=== PATIENT | female | born 1940 | race Caucasian/White ===

== ENCOUNTER 2016-04-25 16:48 | Outpatient (CLI) | payer OTHER ==
[2012-09-03 12:35] VITALS: TEMP 97
[2015-10-24 12:11] VITALS: BMI 25.4
--- NOTE | 2016-04-25 17:22 | CT ---
EXAM: CT of the chest without contrast. HISTORY: Shortness of breath. PROCEDURE: Contiguous axial CT images of the chest without contrast with coronal and sagittal refor mats. FINDINGS: The heart is within normal limits in size. The thoracic aorta is within normal limits in diameter. There are atherosclerotic calcifications in the thoracic aorta. There are coronary teddy ry calcifications. The mediastinum is normal in appearance. There is biapical scarring. There are mild emphysematous changes throughout both lungs. There is minimal atelectasis and/or pneumonia in the superior segment of the left lower lobe. There is minimal lingular atelectasis and/or pneumoni a. There are degenerative changes in the spine. Impression: Minimal lingular and left lower lobe atelectasis and/or pneumonia. Chronic obstructive pulmonary disease. Atherosclerotic vascular disease.
[2016-04-25 17:31] LABS: ALBUMIN 3.6 g/dL (3.4-5.0); ALBUMIN/GLOBULIN RATIO 1.13; ANION GAP 11.2; BILIRUBIN,TOTAL 0.29 mg/dL (0.00-1.20); BUN/CREATININE RATIO 19.23; CALCIUM 10.1 mg/dL (8.2-10.2); CREATININE 0.78 mg/dL (0.60-1.30); POTASSIUM 4.2 mmol/L (3.5-5.10); TOTAL PROTEIN 6.8 g/dL (5.8-8.1)
[2016-04-26 17:42] LABS: BASOPHILS % (AUTO) 0.7 % (0.0-3.0); EOSINOPHILS # (AUTO) 0.1 K/ul (0.0-0.7); HEMATOCRIT 40.8 % (37.0-47.0); IMMATURE GRANULOCYTE % (AUTO) 0.2 % (0.0-5.0); LYMPHOCYTES # (AUTO) 2.2 K/uL (0.60-3.4); LYMPHOCYTES % (AUTO) 36.5 (10.0-50.0); MEAN CORPUSCULAR HEMOGLOBIN 29.5 pg (27.0-31.0); MEAN CORPUSCULAR HGB CONC 31.9 (31.8-35.4); MEAN CORPUSCULAR VOLUME 92.7 fl (81.0-99.0); MONOCYTES # (AUTO) 0.4 K/uL (0.4-2.0); NEUTROPHILS # (AUTO) 3.2 K/ul (2.0-6.9); NEUTROPHILS % (AUTO) 53.6; PLATELET COUNT 148 10^3/uL (140-440); WHITE BLOOD COUNT 6.02 K/ul (4.6-10.2)
== END 2016-04-25 16:49 | disposition home or self-care (01) ==
LOC: RAD 16:48
PROVIDERS: ATTEND General Practice
DX: R06.02 Shortness of breath (principal); R05 Cough; Z87.891 Personal history of nicotine dependence
CPT/HCPCS: 36415; 80053; 85025

== ENCOUNTER 2016-05-23 11:00 | Outpatient (RCR) ==
[2012-09-03 12:35] VITALS: TEMP 97
[2015-10-24 12:11] VITALS: BMI 25.4
== END 2016-05-27 ==
LOC: NEWBEG 11:00
PROVIDERS: ATTEND Psychiatry & Neurology Psychiatry
DX: F33.2 Major depressive disorder, recurrent severe without psychotic features (principal); F41.9 Anxiety disorder, unspecified
CPT/HCPCS: 90792; 90837; 99214

== ENCOUNTER 2016-05-27 16:45 | Inpatient (IN) ==
[2016-05-27 17:15] VITALS: BMI 24.5
[2016-05-27 19:47] LABS: BILIRUBIN,URINE Negative (NEGATIVE); KETONES,URINE Negative (NEGATIVE); LEUKOCYTE ESTERASE ,URINE Negative (NEGATIVE); NITRITE,URINE Negative (NEGATIVE); PH,URINE 6.5 (5-9); PROTEIN,URINE Negative (NEGATIVE); URINE, BLOOD Negative (NEGATIVE)
[2016-05-27 19:49] LABS: ADD URINE MICROSCOPIC NO
--- NOTE | 2016-05-27 21:53 | CT ---
EXAM: CT of the chest without contrast. HISTORY: Cough. Fever. Shortness of breath. COMPARISON: 04/25/2016. TECHNIQUE: Contiguous axial images were obtained from the lung apices to the upper abdomen. The st udy was performed without IV contrast. FINDINGS: The lung windows show no lobar consolidation or effusion. Scattered air space opacities s een in the left lower lobe and lingula. There is no definite lobar consolidation. There are mild emphysematous changes which are increased in comparison to the prior study. There are multiple small nodular densities with central low density/cavitation. These measure 5-7 mm in size. These is see n in the supra segment of the left lower lobe as well as in the right lower lobe. There was a paten t. The heart size normal limits. Coronary calcifications are seen. There is a precarinal lymph no de with a short axis measuring 8 mm. Limited views of the upper abdomen. The visualized portion of the liver, spleen, pancreas adrenal g lands are normal. IMPRESSION: 1. No lobar consolidation or effusion. 2. Scattered air space opacities in left lower lobe and the which may be due to atelectasis. Early pneumonia cannot be excluded. 3. Scattered round nodular densities with central low density suggestive of cavitation. Findings m ay related to an infectious process. Recommend short-term follow-up.
--- NOTE | 2016-05-27 22:02 | ED.PDOC ---
Procedures - IV/Art Line Insertion Location: RT hand Type of Line: Peripheral IV Invasive Line/IV Catheter Gauge: 22 Number of Attempts: 1 Blood Return Positive: Yes Invasive Line/IV Flushes Without Difficulty: Yes Conscious Sedation - Pre-op Assessment Weight: 151 lb 11.2 oz Surgical History: hysterectomy, gallbladder D&C - Medical History Past Medical History: Hypertension, COPD, Anxiety, CAD
[2016-05-27 22:12] LABS: BASOPHILS % (AUTO) 0.5 % (0.0-3.0); EOSINOPHILS # (AUTO) 0.1 K/ul (0.0-0.7); EOSINOPHILS % (AUTO) 1.2 % (0.0-7.0); HEMATOCRIT 39.4 % (37.0-47.0); HEMOGLOBIN 12.9 g/dl (12.0-16.0); IMMATURE GRANULOCYTE % (AUTO) 0.4 % (0.0-5.0); LYMPHOCYTES # (AUTO) 2.1 K/uL (0.60-3.4); LYMPHOCYTES % (AUTO) 26.7 (10.0-50.0); MEAN CORPUSCULAR HEMOGLOBIN 29.5 pg (27.0-31.0); MEAN CORPUSCULAR HGB CONC 32.7 (31.8-35.4); MONOCYTES # (AUTO) 0.4 K/uL (0.4-2.0); MONOCYTES % (AUTO) 5.3 (0-10); NEUTROPHILS # (AUTO) 5.1 K/ul (2.0-6.9); NEUTROPHILS % (AUTO) 65.9; PLATELET COUNT 152 10^3/uL (140-440); RED BLOOD COUNT 4.38 10^6/ul (4.20-5.40); WHITE BLOOD COUNT 7.76 K/ul (4.6-10.2)
[2016-05-27 22:36] LABS: ALBUMIN 3.6 g/dL (3.4-5.0); ALBUMIN/GLOBULIN RATIO 1.06; ANION GAP 13.8; BILIRUBIN,TOTAL 0.31 mg/dL (0.00-1.20); BUN/CREATININE RATIO 14.77; CALCIUM 9.9 mg/dL (8.2-10.2); CREATININE 0.88 mg/dL (0.60-1.30); POTASSIUM 3.8 mmol/L (3.5-5.10)
[2016-05-27] MEDS ORDERED: ROCEPHIN ONE (23:45)
[2016-05-27] MEDS ORDERED: ROCEPHIN 2 GM in SODIUM CHLORIDE 100 ML IV SCH (23:45)
[2016-05-27] MEDS ORDERED: SOLU-CORTEF 250 MG ONE (23:45)
[2016-05-27] MEDS ORDERED: ZITHROMAX 500 MG in SODIUM CHLORIDE 250 ML IV SCH (23:45)
[2016-05-27] MEDS: XANAX PO SCH (23:48)
[2016-05-27] MEDS: TOPROL XL PO SCH (23:49)
[2016-05-27] MEDS: SOLU-CORTEF 250 MG IVP SCH (23:54)
[2016-05-28] MEDS: SYMBICORT 160-4.5 MCG INHALER IH SCH ×2 (08:59→21:02)
[2016-05-28] MEDS ORDERED: SOLU-CORTEF 100 MG IVP SCH (09:00)
[2016-05-28] MEDS: NON-FORMULARY MEDICATION (Bupropion Hcl [Wellbutrin Xl] 300 MG) PO SCH (09:00)
[2016-05-28] MEDS: XANAX PO SCH ×4 (09:00→21:02)
[2016-05-28] MEDS: TOPROL XL PO SCH ×2 (09:00→21:03)
[2016-05-28] MEDS: CYMBALTA PO SCH (09:00)
[2016-05-28] MEDS: SOLU-CORTEF 250 MG IVP SCH (09:01)
[2016-05-28] MEDS: NORCO 10-325 PO PRN (11:39)
[2016-05-28] MEDS ORDERED: TYLENOL PO PRN (18:27)
[2016-05-28] MEDS: ROCEPHIN 2 GM in SODIUM CHLORIDE 100 ML IV SCH (21:02)
[2016-05-28] MEDS: ZITHROMAX 500 MG in SODIUM CHLORIDE 250 ML IV SCH (22:14)
[2016-05-29] MEDS: CYMBALTA PO SCH (09:40)
[2016-05-29] MEDS: TOPROL XL PO SCH ×2 (09:41→20:28)
[2016-05-29] MEDS: XANAX PO SCH ×4 (09:41→20:28)
[2016-05-29] MEDS: NON-FORMULARY MEDICATION (Bupropion Hcl [Wellbutrin Xl] 300 MG) PO SCH (09:41)
[2016-05-29] MEDS: SYMBICORT 160-4.5 MCG INHALER IH SCH ×2 (09:42→20:28)
[2016-05-29] MEDS: NORCO 10-325 PO PRN (12:41)
[2016-05-29] MEDS: LOVENOX SUBCUT SCH (14:15)
[2016-05-29] MEDS: ROCEPHIN 2 GM in SODIUM CHLORIDE 100 ML IV SCH (20:28)
[2016-05-29] MEDS: ZITHROMAX 500 MG in SODIUM CHLORIDE 250 ML IV SCH (21:47)
[2016-05-30] MEDS: CYMBALTA PO SCH (08:25)
[2016-05-30] MEDS: SYMBICORT 160-4.5 MCG INHALER IH SCH (08:25)
[2016-05-30] MEDS: NON-FORMULARY MEDICATION (Bupropion Hcl [Wellbutrin Xl] 300 MG) PO SCH (08:26)
[2016-05-30] MEDS: TOPROL XL PO SCH (08:26)
[2016-05-30] MEDS: LOVENOX SUBCUT SCH (08:27)
[2016-05-30] MEDS: XANAX PO SCH ×2 (08:28→13:45)
[2016-05-30] MEDS ORDERED: ZITHROMAX PO STA (10:50)
[2016-05-30 11:12] VITALS: BP 125/70; TEMP 98.1
[2016-05-30] MEDS: NORCO 10-325 PO PRN (11:35)
--- NOTE | 2016-05-30 11:46 | PN ---
DATE OF VISIT: 05/28/16 SUBJECTIVE: The patient is alert and oriented. She claimed that she is not feeling well but her oxygen saturation is 98% at 2 liters. She admitted to be still smoking. I repeated to her again that any smoking minimal or so is not helpful towards improving her physical health. LUNGS:Her wheezing less but still present in both lung palomares. Air exchange is minimal. HEART: Audible with good tones. ABDOMEN: Soft and non-tender. The patient seemed to be having some tremors of the hands and I don't know if this secondary to the neurotransmitter increase in her system. This patient is taking Cymbalta 60mg daily, Wellbutrin 300mg daily and also a long active beta adrenergic medication. She is receiving Ceftriaxone 2 gram daily and Azithromycin 500mg daily. Again this patient needs to stop smoking completely. I told her that she could not smoke half a cigarette today or a cigarette today at all. Chest CT does not indicate any pneumonia. MTDD
--- NOTE | 2016-06-04 15:19 | DS ---
ADMITTED: 04/2816 DISCHARGED: 05/30/16 PATIENT IDENTIFICATION: The patient is a 76 year old female who was seen initially at the office because of increasing shortness of breath. Her oxygen saturation was 90% with 2 liters of oxygen. Her lungs had markedly diminished breath sounds and air exchange was minimal with inspiratory and expiratory wheeze. Heart was audible with good tones. HOSPITAL COURSE: This patient was admitted to the hospital because of acute exacerbation of chronic bronchitis. Labs were ordered however the formula checker and nurses were not able to access. We had to call Stephan rGeen the nurse anaesthatist to start the IV as well as the drawing of blood samples. Arterial blood gasses was ordered but could not be accessed. The patient's whole work up during this admission consisted of a CBC showing normal WBC 7,760, normal hgb and hct, normal platelet count, normal electrolytes, slightly elevated sugar 146, EGFR 63 , normal AST and ALT, Procalcitonin normal less than 0.05. Urinalysis normal. CT chest showed no consolidation or effusion. Carotid opacities left lower lobe maybe due to atelectasis or early pneumonia, scattered round nodular densities with central low densities suggesting cavitation. Findings maybe related to infectious process and the radiologist recommended a repeat short- term. This patient might need contrast medium during that time. Her EGFR is still acceptable. The patient during this hospitalization was given Ceftriaxone 2grams intervenously daily and Zithromax 1,200mg daily. Third dose of the Zithromax was not complete and only used about a 1/4 she was then given a 500mg orally. The patient was continued on her previous medications and this patient is also now on Wellbutrin prescribed by the psychiatrist from [facility]. The patient had improved while in the hospital and her vitals signs at discharge at 10:00 in the morning showed a temperature 98.1, pulse 75, blood pressure 125/70, respiratory rate 21 and oxygen saturation 98% on 2 liters. The patient's nasal cannula was left in place but the oxygen was discontinued. This patient had oxygen saturation was no oxygen nasal at 92%. The patient had been without oxygen for more than 2 hours. Her lungs has better air exchange and no wheezing. Still has some rales. The heart is audible and regular with good tones. There are more rales appreciated and this probably because of the better air exchange. The patient had sworn that she would not smoke anymore. I told her that she had done that before. She was trying to tell me that she had stopped smoking and yet she is still smoking,does not help her. She told me that she had about 5 or 6 packs of cigarettes at home left. FINAL DIAGNOSES: 1. Acute exacerbation of chronic bronchitis, improved 2. COPD, chronic 3. Chronic tobacco use and abuse persistent 4. Depression, on medication Cymbalta and Wellbutrin PLAN: 1. This patient is resume all her previous medications 2. No further antibiotic is prescribed. PROGNOSIS: Guarded. MTDD
--- NOTE | 2016-06-05 08:53 | HP ---
CHIEF COMPLAINT: Shortness of breath and fatigue. HISTORY OF PRESENT ILLNESS: 76 year old female who is known to have COPD for some time with nasal oxygen at home is seen at the office today because of increasing shortness of breath. The patient's oxygen saturation was 90 at 2 liters. She also was quite tired with cough. Air exchange was very poor and the patient has inspiratory, plus expiratory wheeze with some squeaks. Because of the increasing shortness of breath and markedly low oxygen saturation in spite of oxygen, the patient was admitted to the hospital. The patient had been in the hospital admitted because of exacerbation of chronic bronchitis. The patient continued to smoke. She had other admissions due to exacerbation with severe hypercarbia at one time. She does complain of headaches, this is a chronic problem. PAST PERSONAL HISTORY: She had cataract extraction, total abdominal hysterectomy in 1980, cholecystectomy. FAMILY HISTORY: Sister had lung carcinoma, brother had heart disease. Some members have asthma. SOCIAL HISTORY: The patient is and resides with her . She claimed to have stopped smoking. However, later on she admitted to be smoking a cigarette still. She is not telling me how many cigarettes she smokes a day. I did inform her that she is just kidding herself telling me that she had stopped smoking and yet she is still smoking. It is time for her to completely stop, not a single cigarette. MEDICATIONS: Prior to this admission. Metoprolol Succinate 25 mg twice a day Alprazolam 0.5 mg four times a day Symbicort 160/4.5 mcg one puff twice a day Hydrocodone/APAP 10/325 mg one a day as needed for headache Cymbalta 60 mg daily ALLERGIES: Codeine. REVIEW OF SYSTEMS: CONSTITUTIONAL: The patient had no fever or chills, but has fatigue secondary to the dyspnea. CLINICAL APPEALS RN: The patient has headache, chronic headaches. The intensity has not progressive and it is intermittent. Denies any ataxia or syncopal episode. VISUAL: Denies any blurred vision, double vision or transient loss of vision. AUDITORY: Hearing is somewhat diminished. She denies any pain, drainage or ringing. RESPIRATORY: The patient has cough, but not repetitive. CARDIOVASCULAR: Denies any chest pain or chest tightness or mandibular pain. GASTROINTESTINAL: The patient's appetite seemed to be adequate. No abdominal pain and no problems swallowing solids or liquids. GENITOURINARY: The patient has no pain on urination and no significant frequency. MUSCULOSKELETAL: Denies any significant joint pains. She, however, moves slowly. INTEGUMENT: Denies any rash or pruritus. ENDOCRINE: Negative. HEMATOLOGIC: Denies any prolonged bleeding episodes or easy bruising. PSYCHIATRIC: The patient's affect is down. The patient seemed to be depressed and she now goes to [facility]. PHYSICAL EXAMINATION: GENERAL: 76 year old female admitted to the hospital because of increasing shortness of breath and fatigue in spite of oxygen. VITAL SIGNS: Temperature 97.8, pulse 91, blood pressure left arm 141/78, right 134/88, respiratory rate 20, oxygen saturation 97 at room air. The patient is 5 '6", 157 pounds, BMI 25.4. HEAD: Unremarkable. FACE: Symmetrical and equal with no facial weakness and no significant tenderness to palpation under pressure in the frontal or maxillary sinus areas. EYES: Pupils equal/reactive to light. Conjunctivae not pale. Sclerae not icteric. MOUTH: Unremarkable. THROAT: No inflammation, no tumors. NECK: No masses. No bruit. No tenderness. CHEST: Essentially symmetrical and equal with some limited expansion. LUNGS: Breath sounds are markedly diminished in both sides with inspiratory and expiratory wheeze and also a few squeaks. These are heard anteriorly, as well as posteriorly. HEART: Audible and regular with good tones. No murmurs. ABDOMEN: Soft with no remarkable tenderness. No guarding. Bowel sounds are active. No masses palpable. PELVIC AND RECTAL: Not done. LOWER EXTREMITIES: Essentially symmetrical and equal. ASSESSMENT: 1. ACUTE EXACERBATION OF CHRONIC BRONCHITIS 2. CHRONIC RESPIRATORY FAILURE WITH EXACERBATION 3. CHRONIC TOBACCO USE AND ABUSE, PERSISTENT 4. DEPRESSION 5. HISTORY OF PREVIOUS CHOLECYSTECTOMY 6. HISTORY OF ABDOMINAL HYSTERECTOMY MTDD
--- NOTE | 2016-06-25 13:53 | PN ---
DATE OF VISIT: 05/29/2016 76 year old female who was known to have chronic obstructive lung disease, severe with continuous oxygen was admitted to the hospital because of increasing shortness of breath. The patient's physical examination revealed an alert individual who is responsive. Minimal exertion causes dyspnea. LUNGS: Breath are markedly diminished to nonexistent. HEART: Audible with good tones. This patient was advised never to smoke and she admitted that she had been smoking still a few puffs during the day. The patient's initial blood sugar was elevated at 146. Hemoglobin and A1C was requested and these were within normal limits at 4.7. Fasting insulin will be requested tomorrow. This patient is receiving 2 grams of Rocephin and 500 mg of Zithromax. They are given daily. The patient seemed to feel some better today. VITAL SIGNS: her temperature at 5:30 p.m. 05/29/2016 was 98.3, pulse 83, blood pressure 113/65, respiratory rate 20, oxygen saturation 98 at 2 Liters. This patient will be tried later on without any oxygen and see what the oxygen saturation is. LUNGS: Breath sounds has some increase in air exchange. There is some rales now that is audible, probably because of the better air exchange. HEART: Audible with good tones. ABDOMEN: Protuberant, soft with no tenderness. The patient denied any discomfort or pain today. CONDITION: Stable. MTDD
== END 2016-05-30 15:55 | disposition home or self-care (01) | DRG 192 ==
LOC: MEDSURG B 16:45
PROVIDERS: ADMIT General Practice; ATTEND General Practice
DX: J44.1 Chronic obstructive pulmonary disease with (acute) exacerbation (principal); F17.210 Nicotine dependence, cigarettes, uncomplicated; F32.9 Major depressive disorder, single episode, unspecified; R25.1 Tremor, unspecified; Z79.899 Other long term (current) drug therapy
CPT/HCPCS: 36415; 80053; 80323; 81001; 83036; 83525; 84145; 85025; 87040; 93005; 93010; 99223; 99232; 99239

== ENCOUNTER 2016-05-28 10:44 | Outpatient (RCR) ==
[2012-09-03 12:35] VITALS: TEMP 97
[2016-05-27 17:15] VITALS: BMI 24.5
== END 2016-06-27 ==
LOC: NEWBEG 10:44
PROVIDERS: ATTEND Psychiatry & Neurology Psychiatry
DX: F32.9 Major depressive disorder, single episode, unspecified (principal); F41.9 Anxiety disorder, unspecified

== ENCOUNTER 2016-06-30 11:16 | Outpatient (CLI) ==
[2012-09-03 12:35] VITALS: TEMP 97
[2016-06-30 11:35] LABS: BASOPHILS % (AUTO) 0.5 % (0.0-3.0); EOSINOPHILS % (AUTO) 0.7 % (0.0-7.0); HEMATOCRIT 41.8 % (37.0-47.0); HEMOGLOBIN 13.8 g/dl (12.0-16.0); IMMATURE GRANULOCYTE % (AUTO) 0.3 % (0.0-5.0); LYMPHOCYTES # (AUTO) 1.2 K/uL (0.60-3.4); LYMPHOCYTES % (AUTO) 20.5 (10.0-50.0); MEAN CORPUSCULAR VOLUME 90.9 fl (81.0-99.0); MONOCYTES # (AUTO) 0.3 K/uL (0.4-2.0); MONOCYTES % (AUTO) 5.6 (0-10); NEUTROPHILS # (AUTO) 4.4 K/ul (2.0-6.9); NEUTROPHILS % (AUTO) 72.4; PLATELET COUNT 161 10^3/uL (140-440); WHITE BLOOD COUNT 6.06 K/ul (4.6-10.2)
[2016-06-30 11:57] LABS: BILIRUBIN,URINE Negative (NEGATIVE); KETONES,URINE Negative (NEGATIVE); LEUKOCYTE ESTERASE ,URINE Negative (NEGATIVE); NITRITE,URINE Negative (NEGATIVE); PH,URINE 5.5 (5-9); PROTEIN,URINE 1+ (NEGATIVE); URINE, BLOOD Negative (NEGATIVE)
[2016-06-30 12:00] LABS: ADD URINE MICROSCOPIC YES
--- NOTE | 2016-06-30 12:30 | CT ---
EXAM: CT chest without contrast HISTORY: Fever with sore throat and swollen lymph nodes. Patient with history of chronic obstructi ve pulmonary disease. Familial history of cancer. COMPARISON: CT chest 05/27/[address] chest dating back to 12/28/2014 TECHNIQUE: Serial axial images of the chest were obtained from the lung apices to the upper abdomen without contrast. These were viewed in multiple planes. FINDINGS: The thyroid is normal. The visualized vessels are unremarkable without aneurysm or steno sis. The heart is normal in size without pericardial effusion. There are no pathologically enlarge d mediastinal or hilar lymph nodes. Nonpathologically enlarged lymph nodes are present. There is no pneumothorax or pleural effusion. There is mild emphysematous disease. There is a 0.2 cm pulmonary nodule right upper lobe on image 18. Stable since prior exam and unchanged dating back to 2014 and is considered benign. Minimal small airways thickening which is stable in the lower lo bes, right middle lobe and lingula with minimal bronchiectasis. This is relatively unchanged dating back to 2014 consistent with chronic small airways inflammation changes. The airways are patent. The soft tissues in the upper abdomen demonstrate prior cholecystectomy. The osseous structures dem onstrate mild scattered degenerative disease. IMPRESSION: 1. No acute cardiopulmonary process. 2. Emphysema with scattered areas of small airway thickening and bronchiectasis consistent with chr onic small airways inflammation. Findings are consistent with chronic obstructive pulmonary disease . 3. Prior cholecystectomy and scattered degenerative disease of the spine.
[2016-06-30 12:44] LABS: FLU INTERNAL QC INTERNAL QC VALID; RAPID FLU A NEGATIVE (NEGATIVE); RAPID FLU B NEGATIVE (NEGATIVE)
== END 2016-06-30 11:17 | disposition home or self-care (01) ==
LOC: RAD 11:16
PROVIDERS: ATTEND General Practice
DX: R09.89 Other specified symptoms and signs involving the circulatory and respiratory systems (principal); R50.9 Fever, unspecified; R68.83 Chills (without fever); R30.0 Dysuria
CPT/HCPCS: 36415; 81001; 84145; 85025; 87651; 87804; 87880

== ENCOUNTER 2016-06-30 12:19 | Outpatient (CLI) ==
[2012-09-03 12:35] VITALS: TEMP 97
== END 2016-06-30 12:20 | disposition home or self-care (01) ==
LOC: LAB 12:19
PROVIDERS: ATTEND General Practice
DX: R50.9 Fever, unspecified (principal)

== ENCOUNTER 2016-11-10 08:46 | Emergency (ER) ==
[2016-11-10 08:57] VITALS: BP 130/72; TEMP 98.6; BMI 24.7
[2016-11-10 09:20] LABS: BASOPHILS % (AUTO) 0.3 % (0.0-3.0); EOSINOPHILS % (AUTO) 0.6 % (0.0-7.0); HEMATOCRIT 42.3 % (37.0-47.0); IMMATURE GRANULOCYTE % (AUTO) 0.3 % (0.0-5.0); LYMPHOCYTES # (AUTO) 1.2 K/uL (0.60-3.4); LYMPHOCYTES % (AUTO) 17.1 (10.0-50.0); MEAN CORPUSCULAR HEMOGLOBIN 29.5 pg (27.0-31.0); MEAN CORPUSCULAR HGB CONC 33.1 (31.8-35.4); MEAN CORPUSCULAR VOLUME 89.1 fl (81.0-99.0); MONOCYTES # (AUTO) 0.4 K/uL (0.4-2.0); MONOCYTES % (AUTO) 5.1 (0-10); NEUTROPHILS # (AUTO) 5.5 K/ul (2.0-6.9); NEUTROPHILS % (AUTO) 76.6; PLATELET COUNT 155 10^3/uL (140-440); RED BLOOD COUNT 4.75 10^6/ul (4.20-5.40); WHITE BLOOD COUNT 7.21 K/ul (4.6-10.2)
[2016-11-10 09:31] LABS: ABG BASE EXCESS 9 (-2.0-2.0); ABG HCO3 33.5 (22.0-26.0); ABG PCO2 54.8 mmHg (35-45); ABG PH 7.394 (7.35-7.45); ABG TCO2 35 (22.0-28.0)
[2016-11-10 09:46] LABS: ALBUMIN 3.9 g/dL (3.4-5.0); ALBUMIN/GLOBULIN RATIO 1.15; ANION GAP 15.1; BILIRUBIN,TOTAL 0.6 mg/dL (0.00-1.20); BUN/CREATININE RATIO 11.9; CALCIUM 10.8 mg/dL (8.2-10.2); CREATININE 0.84 mg/dL (0.60-1.30); POTASSIUM 4.1 mmol/L (3.5-5.10); TOTAL PROTEIN 7.3 g/dL (5.8-8.1); TROPONIN I 0.022 ng/ml (0.0000-0.4000)
--- NOTE | 2016-11-10 09:53 | DI ---
Exam: Single x-ray of the chest. Comparison: CT chest performed 06/30/2016. Reason for exam: Cough. FINDINGS: No pneumothorax. Image interpretation is somewhat limited by patient positioning. Patchy ground-glass opacities are seen in the left lower lobe that do not appear significantly changed fro m the previous CT performed on 06/30/2016. No focal consolidation. The imaged osseous structures a ppear grossly unremarkable without acute fracture. Impression: 1. Similar appearing ground-glass in the left lower lobe may represent atelectasis, pneumonia, or a prominent pericardial fat pad. 2. No pneumothorax.
--- NOTE | 2016-11-10 10:14 | ED.PDOC ---
General ED Provider: Dr. GUMARO WATERS Chief Complaint: Weakness Stated Complaint: weakness Time Seen by Physician: 09:00 Mode of Arrival: Walk-In Information Source: Patient, Family Exam Limitations: No limitations [facility] Nursing and Triage Documentation Reviewed and Agree: Yes Respiratory Complaint Exam - Shortness of Air Complaint/Exam Symptoms Are: Resolved Timing: Intermittent Initial Severity: Mild Current Severity: None Aggravating: Reports: None Alleviating: Reports: Spontaneous resolution Associated Signs and Symptoms: Reports: Cough Pulmonary Embolism Risk Factors: Reports: Bedrest Cardiac Risk Factors: Reports: Hypertension Tuberculosis Risk Factors: Reports: None Home Oxygen Use: Yes Recent Stress Test: No Recent Echo/LV Function: No Respiratory Distress: None Stridor Present: No Tracheal Deviation: No Subcutaneous Emphysema: No Accessory Muscle Use: No Retractions: Not Present Diminished Breath Sounds: Yes Prolonged Expiratory Phase: No Unable to Speak Full Sentences: No Fatigue: No Leg Swelling: No Jerilyn's Sign Present: No Grunting Respirations: No Kussmaul Respirations: No Differential Diagnoses: CHF, Pulmonary Edema, Pneumonia, Pneumothorax, Bronchitis Review of Systems - Review Of Systems Constitutional: Reports: Malaise, Weakness Eyes: Reports: No symptoms Ears, Nose, Mouth, Throat: Reports: No symptoms Respiratory: Reports: Cough Cardiac: Reports: No symptoms GI: Reports: No symptoms : Reports: No symptoms Musculoskeletal: Reports: No symptoms Skin: Reports: No symptoms Neurological: Reports: No symptoms Endocrine: Reports: No symptoms Hematologic/Lymphatic: Reports: No symptoms All Other Systems: Reviewed and Negative Past Medical History - Past Medical History Endocrine: Reports: None Cardiovascular: Reports: CAD, Hypertension Respiratory: Reports: COPD (2 liter dependent. ), Pneumonia Hematological: Reports: None Gastrointestinal: Reports: None Genitourinary: Reports: None Neuro/Psych: Reports: Anxiety Musculoskeletal: Reports: None Cancer: Reports: None Last Menstrual Period: 1979 - Surgical History General Surgical History: Reports: Hysterectomy, Cholecystectomy, Other (D and C ) - Family History Family History: Reports: Unknown - Social History Smoking Status: Former smoker Hx Substance Use: No Alcohol Screening: None - Immunizations Tetanus Shot up to Date: Yes Physical Exam - Physical Exam Appearance: Well-appearing, No pain distress, Well-nourished Eyes: BASIL, EOMI, Conjunctiva clear ENT: Ears normal, Nose normal, Oropharynx normal Respiratory: Airway patent, Breath sounds clear, Breath sounds equal, Respirations nonlabored Cardiovascular: RRR, Pulses normal, No rub, No murmur GI/: Soft, Nontender, No masses, Bowel sounds normal, No Organomegaly Musculoskeletal: Normal strength, ROM intact, No edema, No calf tenderness Skin: Warm, Dry, Normal color Neurological: Sensation intact, Motor intact, Reflexes intact, Cranial nerves intact, Alert, Oriented Psychiatric: Affect appropriate, Mood appropriate Interpretation - Radiology Interpretation Radiology Interpretation By: Radiologist Radiology Results: No acute changes Physician Notification - Case Discussed Physician Notified: pmd Time of Notification: 10:13 ( send to office now) Critical Care Note - Critical Care Note Total Time (mins): 0 Course - Course Hematology/Chemistry: 11/10/16 09:15 11/10/16 09:15 Orders, Labs, Meds: Lab Review 11/10/16 11/10/16 09:06 09:15 WBC 7.21 RBC 4.75 Hgb 14.0 Hct 42.3 MCV 89.1 MCH 29.5 MCHC 33.1 RDW Coeff of Samia 12.3 Plt Count 155 Immature Gran % (Auto) 0.3 Neut % (Auto) 76.6 Lymph % (Auto) 17.1 [place] % (Auto) 5.1 Eos % (Auto) 0.6 Baso % (Auto) 0.3 Immature Gran # (Auto) 0.0 Neut # 5.5 Lymph # 1.2 [place] # 0.4 Eos # 0.0 Baso # 0.0 Puncture Site Rrad O2 Saturation 98.0 ABG pH 7.394 ABG pCO2 54.8 H ABG pO2 107.0 H ABG HCO3 33.5 H ABG Total CO2 35 H ABG Base Excess 9 H Emanuel Test + O2 Delivery Device Nc Oxygen Liter Flow 2.00 Sodium 141 Potassium 4.1 Chloride 100 Carbon Dioxide 30 Anion Gap 15.1 BUN 10 Creatinine 0.84 Estimated GFR (MDRD) 66.00 BUN/Creatinine Ratio 11.90 Glucose 119 H Calcium 10.8 H Total Bilirubin 0.60 AST 15 ALT 14 Alkaline Phosphatase 114 Total Creatine Kinase 47 Troponin I 0.0220 B-Natriuretic Peptide 98 Total Protein 7.3 Albumin 3.9 Globulin 3.4 Albumin/Globulin Ratio 1.15 Orders Category Date Time Status ABG DRAW REQUEST Stat CARDIO 11/10/16 09:06 Completed EKG-(ED ONLY) Stat CARDIO 11/10/16 09:06 Completed ABG Stat LAB 11/10/16 09:06 Completed B-TYPE NATRIURETIC PEPTIDE Stat LAB 11/10/16 09:15 Completed CBC W/ AUTO DIFF Stat LAB 11/10/16 09:15 Completed COMPREHENSIVE METABOLIC PANEL Stat LAB 11/10/16 09:15 Completed CREATINE KINASE Stat LAB 11/10/16 09:15 Completed TROPONIN I Stat LAB 11/10/16 09:15 Completed UA [URINALYSIS C & S IF INDICATED] Stat LAB 11/10/16 10:05 Received CHEST, 1V AP ONLY Stat RADS 11/10/16 09:06 Completed Vital Signs: Temp Pulse Resp BP Pulse Ox 11/10/16 08:47 98.6 F 79 24 130/72 89 L Departure - Departure Time of Disposition: 10:14 (pt seen with nursing staff at all times ) Disposition: HOME SELF-CARE Discharge Problem: Weakness Instructions: Weakness (ED) Condition: Good Pt referred to PMD for follow-up: Yes (will see in office now ) Additional Instructions: Please call your Family Physician as soon as possible to schedule a follow-up appointment. Allergies/Adverse Reactions: Allergies codeine [Codeine] Adverse Reaction (Unverified 10/30/16 15:31) Home Medications: Ambulatory Orders Alprazolam 0.5 mg PO QID 11/21/14 Budesonide/Formoterol Fumarate [Symbicort 160-4.5 Mcg Inhaler] 1 puff IH BID 04/13 Bupropion HCl [Wellbutrin Xl] 300 mg PO DAILY 05/27/16
[2016-11-10 10:15] LABS: BILIRUBIN,URINE 1+ (NEGATIVE); KETONES,URINE 1+ (NEGATIVE); LEUKOCYTE ESTERASE ,URINE Negative (NEGATIVE); NITRITE,URINE Negative (NEGATIVE); PH,URINE 6.5 (5-9); PROTEIN,URINE 1+ (NEGATIVE); URINE, BLOOD Negative (NEGATIVE)
[2016-11-10 10:18] LABS: ADD URINE MICROSCOPIC YES; BACTERIA,URINE TRACE (NOT PRESENT)
--- NOTE | 2016-11-10 21:26 | CT ---
EXAM: CT THORAX HISTORY: Shortness of breath, concern for pneumonia. TECHNIQUE: CT thorax without intravenous contrast. 5-mm axial sections. Coronal and sagittal re-fo rmations. COMPARISON: 06/30/2016 FINDINGS: Heart size is within normal limits. There is a tiny amount of pericardial fluid. Mild to moderate atherosclerotic disease. Lungs are hyperinflated. Chronic-appearing interstitial changes are seen diffusely with early emphy sema in the upper lung zones. Subtle infiltrate in the left lower lobe is probable and this is new since the previous exam. There is no vascular congestion, central interstitial edema, pneumothorax or pleural fluid. The bones reveal mild scoliosis and exaggerated kyphosis. Early degenerative disc disease of the mi d spine. IMPRESSION: Chronic obstructive pulmonary disease is suggested, correlate clinically. Subtle left base pneumoni a.
== END 2016-11-10 10:39 | disposition home or self-care (01) ==
LOC: ED 08:46
DX: R53.1 Weakness (principal); R05 Cough; I10 Essential (primary) hypertension; I25.10 Atherosclerotic heart disease of native coronary artery without angina pectoris; J44.9 Chronic obstructive pulmonary disease, unspecified; Z79.899 Other long term (current) drug therapy
CPT/HCPCS: 36415; 80053; 81001; 82550; 82803; 83525; 83880; 84484; 85025; 93005; 93010; 99283

== ENCOUNTER 2017-01-15 16:20 | Outpatient (CLI) ==
[2012-09-03 12:35] VITALS: TEMP 97
[2016-11-10 12:49] VITALS: BMI 23.7
[2017-01-15 16:25] LABS: BASOPHILS # (AUTO) 0.1 K/uL (0-0.2); BASOPHILS % (AUTO) 0.6 % (0.0-3.0); EOSINOPHILS # (AUTO) 0.1 K/ul (0.0-0.7); EOSINOPHILS % (AUTO) 0.7 % (0.0-7.0); HEMATOCRIT 44.9 % (37.0-47.0); HEMOGLOBIN 14.9 g/dl (12.0-16.0); IMMATURE GRANULOCYTE % (AUTO) 0.3 % (0.0-5.0); LYMPHOCYTES % (AUTO) 23.4 (10.0-50.0); MEAN CORPUSCULAR HEMOGLOBIN 30.5 pg (27.0-31.0); MEAN CORPUSCULAR HGB CONC 33.2 (31.8-35.4); MONOCYTES # (AUTO) 0.6 K/uL (0.4-2.0); MONOCYTES % (AUTO) 6.8 (0-10); NEUTROPHILS # (AUTO) 5.9 K/ul (2.0-6.9); NEUTROPHILS % (AUTO) 68.2; PLATELET COUNT 184 10^3/uL (140-440); RED BLOOD COUNT 4.88 10^6/ul (4.20-5.40); WHITE BLOOD COUNT 8.64 K/ul (4.6-10.2)
[2017-01-15 16:29] LABS: BILIRUBIN,URINE Negative (NEGATIVE); KETONES,URINE Negative (NEGATIVE); LEUKOCYTE ESTERASE ,URINE Negative (NEGATIVE); NITRITE,URINE Negative (NEGATIVE); PROTEIN,URINE Trace (NEGATIVE); URINE, BLOOD Negative (NEGATIVE)
[2017-01-15 16:39] LABS: ADD URINE MICROSCOPIC YES
== END 2017-01-15 16:21 | disposition home or self-care (01) ==
LOC: LAB 16:20
PROVIDERS: ATTEND General Practice
DX: R50.9 Fever, unspecified (principal); R35.0 Frequency of micturition
CPT/HCPCS: 36415; 81001; 85025

== ENCOUNTER 2017-02-23 00:07 | Emergency (ER) ==
[2017-02-23 00:13] VITALS: BP 129/80; TEMP 99.8; BMI 24.2
[2017-02-23] MEDS ORDERED: ZOFRAN ODT PO STA (00:21)
--- NOTE | 2017-02-23 00:30 | ED.PDOC ---
General ED Provider: Dr. UNRULY LEE Chief Complaint: Nausea/Vomiting Stated Complaint: Darrick is a 77 year old female who comes to the ER stating that she has had a sore throat for few days. but that the soreness is getting better. Also complain of nausea and vomiting x 1 only. States she has a history of COPD and is on chornic oxygen with same shortness of breath. States she feels weak unable to excercise. She was admitted early this month for COPD excercerbation. Time Seen by Physician: 00:23 Mode of Arrival: Walk-In Information Source: Patient, Family Exam Limitations: No limitations Primary [facility] Nursing and Triage Documentation Reviewed and Agree: Yes EENT Complaint Exam - Throat Complaint/Exam Onset/Duration: 1 day Symptoms Are: Still present Current Severity: None Aggravating: Reports: Eating Alleviating: Reports: Antipyretics Associated Signs and Symptoms: Reports: Fever, Difficulty breathing (chronic stable unchanged from baseline. ) Uvula Midline: Yes Kristine-tonsillar Fluctuence: No Scarlatinaform Rash Present: No Lesions: Absent: Lip, Gums, Tongue, Buccal Mucosa, Pharynx Exanthem: Absent: Lip, Gums, Tongue, Buccal Mucosa, Pharynx Vesicles: Absent: Lip, Gums, Tongue, Buccal Mucosa, Pharynx Stridor Present: No Sinus Tenderness Present: No Tonsillar Hypertrophy Present: No Tonsillar Exudate Present: No Adenopathy Present: No Splenomegaly Present: No Differential Diagnoses: Influenza, Pharyngitis, Tonsillitis, URI Review of Systems - Review Of Systems Constitutional: Reports: Fever (low grade temp) Eyes: Reports: No symptoms Ears, Nose, Mouth, Throat: Reports: No symptoms Respiratory: Reports: Short of air (chronic stable ) Cardiac: Reports: No symptoms GI: Reports: No symptoms : Reports: No symptoms Musculoskeletal: Reports: No symptoms Skin: Reports: No symptoms Neurological: Reports: Anxiety Endocrine: Reports: No symptoms Hematologic/Lymphatic: Reports: No symptoms All Other Systems: Reviewed and Negative Past Medical History - Past Medical History Endocrine: Reports: None Cardiovascular: Reports: CAD, Hypertension Respiratory: Reports: COPD (2 liter dependent. ), Pneumonia Hematological: Reports: None Gastrointestinal: Reports: None Genitourinary: Reports: None Neuro/Psych: Reports: Anxiety Musculoskeletal: Reports: None Cancer: Reports: None Last Menstrual Period: HYSTERECTOMY - Surgical History General Surgical History: Reports: Hysterectomy, Cholecystectomy, Other (D and C ) - Family History Family History: Reports: Unknown - Social History Smoking Status: Former smoker Hx Substance Use: No Alcohol Screening: None - Immunizations Tetanus Shot up to Date: Yes Physical Exam - Physical Exam Appearance: Well-appearing, Obese Eyes: BASIL, EOMI, Conjunctiva clear Neck: Supple Respiratory: Airway patent, Breath sounds clear Cardiovascular: RRR, Pulses normal, No rub, No murmur GI/: Soft, Nontender, No masses, Bowel sounds normal, No Organomegaly Musculoskeletal: Normal strength, ROM intact, No edema, No calf tenderness Skin: Warm, Dry Neurological: Sensation intact, Motor intact Psychiatric: Anxious Critical Care Note - Critical Care Note Total Time (mins): 0 Course - Course Orders, Labs, Meds: Orders Category Date Time Status FLU A & B RAPID TEST [RAPID FLU A/B] Stat LAB 02/23/17 00:17 Uncollected STREP SCREEN Stat LAB 02/23/17 00:21 Uncollected Ondansetron [Zofran Odt] MEDS 02/23/17 00:21 Stat 8 mg PO ONCE STA Medications Discontinued Medications Generic Name Dose Route Start Last Admin Trade Name Freq PRN Reason Stop Dose Admin Ondansetron HCl 8 mg 02/23/17 00:21 Zofran Odt PO 02/23/17 00:22 ONCE STA Vital Signs: Temp Pulse Resp BP Pulse Ox 02/23/17 00:08 99.8 F H 99 H 22 129/80 90 L Departure - Departure Time of Disposition: 00:56 Disposition: HOME SELF-CARE Discharge Problem: Nausea Pharyngitis Qualifiers: Pharyngitis/tonsillitis etiology: other specified organisms Qualified Code(s): J02.8 - Acute pharyngitis due to other specified organisms Instructions: Acute Nausea and Vomiting (ED), Pharyngitis (ED) Condition: Stable Pt referred to PMD for follow-up: Yes Additional Instructions: Push fluids Take Medications as prescribed Followup with PCP in 3 days Exercise to prevent worsening of weakens. Prescriptions: Ondansetron HCl [Zofran Tab] 4 mg PO Q8H PRN #14 tablet PRN Reason: Nausea / Vomiting Allergies/Adverse Reactions: Allergies codeine [Codeine] Adverse Reaction (Unverified 10/30/17 15:17) Home Medications: Ambulatory Orders Budesonide/Formoterol Fumarate [Symbicort 160-4.5 Mcg Inhaler] 1 puff IH BID 04/13 Bupropion HCl [Wellbutrin Xl] 300 mg PO DAILY #90 tab.er.24h 11/13/16 Budesonide/Formoterol Fumarate [Symbicort 160-4.5 Mcg Inhaler] 10.2 gm IH DAILY 30 Days inh 12/18/16 Ondansetron HCl [Zofran Tab] 4 mg PO Q8H PRN #14 tablet 02/23/17 Disposition Discussed With: Patient, Family
[2017-02-23 00:47] LABS: FLU INTERNAL QC INTERNAL QC VALID; RAPID FLU A NEGATIVE (NEGATIVE); RAPID FLU B NEGATIVE (NEGATIVE)
== END 2017-02-23 01:02 | disposition home or self-care (01) ==
LOC: ED 00:07
DX: J02.9 Acute pharyngitis, unspecified (principal); R11.2 Nausea with vomiting, unspecified; J44.9 Chronic obstructive pulmonary disease, unspecified; R06.02 Shortness of breath; Z99.81 Dependence on supplemental oxygen
CPT/HCPCS: 87651; 87804; 87880; 99283

== ENCOUNTER 2017-02-24 17:08 | Inpatient (IN) | payer OTHER ==
[2017-02-24] MEDS ORDERED: PROZAC ONE (19:36)
[2017-02-24] MEDS: PROZAC PO SCH (19:44)
[2017-02-24] MEDS ORDERED: NITROSTAT SL PRN (19:52)
[2017-02-24] MEDS ORDERED: MORPHINE 4 MG/ML VIAL IVP PRN (19:52)
[2017-02-24] MEDS ORDERED: VISTARIL INJ IM PRN (19:52)
[2017-02-24] MEDS ORDERED: ATROPINE SULFATE PFS IVP PRN (19:52)
[2017-02-24] MEDS ORDERED: TYLENOL PO PRN (19:52)
[2017-02-24] MEDS ORDERED: LOPRESSOR PO SCH (21:00)
[2017-02-24 21:03] LABS: HEMATOCRIT 37.6 % (37.0-47.0); HEMOGLOBIN 12.5 g/dl (12.0-16.0); MEAN CORPUSCULAR HEMOGLOBIN 30.7 pg (27.0-31.0); MEAN CORPUSCULAR HGB CONC 33.2 (31.8-35.4); MEAN CORPUSCULAR VOLUME 92.4 fl (81.0-99.0); PLATELET COUNT 130 10^3/uL (140-440); RED BLOOD COUNT 4.07 10^6/ul (4.20-5.40); WHITE BLOOD COUNT 7.68 K/ul (4.6-10.2)
[2017-02-24 21:10] LABS: ANISOCYTOSIS NOT PRESENT (NOT PRESENT)
[2017-02-24] MEDS ORDERED: ROCEPHIN 1 GM in SODIUM CHLORIDE 50 ML IV SCH (21:30)
[2017-02-24 21:31] LABS: ALANINE AMINOTRANSFERASE 17 U/L (12-78); ALBUMIN/GLOBULIN RATIO 0.83; ALKALINE PHOSPHATASE 100 U/L (53-141); ANION GAP 15.8; ASPARTATE AMINO TRANSFERASE 19 U/L (15-37); BILIRUBIN,TOTAL 0.89 mg/dL (0.00-1.20); BLOOD UREA NITROGEN 19 mg/dL (7-18); BUN/CREATININE RATIO 13.86; CALCIUM 10.3 mg/dL (8.2-10.2); CARBON DIOXIDE 25 mmol/L (23-31); CHLORIDE 103 mmol/L (98-107); CREATINE KINASE 77 U/L; CREATININE 1.37 mg/dL (0.60-1.30); GLUCOSE 112 mg/dL (82-115); MYOGLOBIN 197 ng/ml; POTASSIUM 3.8 mmol/L (3.5-5.10); SODIUM 140 mmol/L (136-145); TOTAL PROTEIN 6.6 g/dL (5.8-8.1)
[2017-02-24] MEDS: SYMBICORT 160-4.5 MCG INHALER IH SCH (21:45)
[2017-02-24] MEDS: XANAX PO SCH (21:45)
[2017-02-24 22:27] LABS: ABG PCO2 39.3 mmHg (35-45); ABG PH 7.409 (7.35-7.45)
[2017-02-24 22:28] LABS: ABG BASE EXCESS 0 (-2.0-2.0); ABG HCO3 24.9 (22.0-26.0); ABG TCO2 26 (22.0-28.0)
--- NOTE | 2017-02-24 22:56 | ED.PDOC ---
Procedures - IV/Art Line Insertion Location: Left Forearm Invasive Line/IV Catheter Gauge: 22 Number of Attempts: 1 Blood Return Positive: Yes Invasive Line/IV Flushes Without Difficulty: Yes Conscious Sedation - Pre-op Assessment Surgical History: hysterectomy, gallbladder D&C - Medical History Past Medical History: Hypertension, COPD, Depression, Anxiety, CAD
--- NOTE | 2017-02-24 23:12 | CT ---
EXAM: CT of the chest without contrast. HISTORY: Congestion. PROCEDURE: Contiguous axial CT images of the chest without contrast with coronal and sagittal reform ats. FINDINGS: Comparison made with CT chest of 11/10/2016. The heart is within normal limits in size. T he thoracic aorta is within normal limits in diameter. There are emphysematous changes throughout harrison th lungs. There are bilateral infiltrates and patchy areas of consolidation in the left lung consist ent with pneumonia. There are degenerative changes in the spine. The adrenal glands and visualized portion of the liver are normal in appearance. Impression: Bilateral infiltrates and left lung consolidation as described consistent with pneumonia . Chronic obstructive pulmonary disease.
[2017-02-24] MEDS ORDERED: ROCEPHIN ONE (23:14)
[2017-02-24] MEDS: SOLU-MEDROL 125 MG IVP SCH (23:33)
[2017-02-25 00:24] LABS: BILIRUBIN,URINE Negative (NEGATIVE); KETONES,URINE Trace (NEGATIVE); LEUKOCYTE ESTERASE ,URINE 1+ (NEGATIVE); NITRITE,URINE Negative (NEGATIVE); PH,URINE 5.5 (5-9); PROTEIN,URINE 2+ (NEGATIVE); URINE, BLOOD 1+ (NEGATIVE)
[2017-02-25 00:29] LABS: ADD URINE MICROSCOPIC YES; BACTERIA,URINE 2+ (NOT PRESENT)
[2017-02-25] MEDS: DUONEB NEB SCH ×5 (00:33→23:03)
[2017-02-25 01:32] VITALS: BMI 29.0
[2017-02-25 05:56] LABS: TROPONIN I 0.011 ng/ml (0.0000-0.4000)
[2017-02-25] MEDS: SOLU-MEDROL 125 MG IVP SCH ×3 (06:48→21:18)
[2017-02-25] MEDS ORDERED: CHLORASEPTIC SPRAY MM PRN (08:43)
[2017-02-25] MEDS: PROZAC PO SCH (09:25)
[2017-02-25] MEDS: LOVENOX SUBCUT SCH (09:25)
[2017-02-25] MEDS: SYMBICORT 160-4.5 MCG INHALER IH SCH ×2 (09:25→20:52)
[2017-02-25] MEDS: XANAX PO SCH ×4 (09:25→20:53)
[2017-02-25] MEDS: LOPRESSOR PO SCH ×2 (09:26→17:40)
[2017-02-25] MEDS: ASPIRIN EC PO SCH (09:26)
[2017-02-25] MEDS: TESSALON PERLES PO SCH ×4 (09:27→20:54)
[2017-02-25] MEDS: NON-FORMULARY MEDICATION (Bupropion Hcl [Wellbutrin Xl] 300 MG) PO SCH (17:49)
[2017-02-25] MEDS: ROCEPHIN 1 GM in SODIUM CHLORIDE 50 ML IV SCH (20:52)
[2017-02-26] MEDS: SOLU-MEDROL 125 MG IVP SCH ×3 (05:00→21:02)
[2017-02-26] MEDS: DUONEB NEB SCH ×3 (05:04→16:35)
[2017-02-26] MEDS: XANAX PO SCH ×4 (10:15→20:55)
[2017-02-26] MEDS: LOPRESSOR PO SCH ×2 (10:15→17:28)
[2017-02-26] MEDS: ASPIRIN EC PO SCH (10:15)
[2017-02-26] MEDS: LOVENOX SUBCUT SCH (10:15)
[2017-02-26] MEDS: PROZAC PO SCH (10:15)
[2017-02-26] MEDS: TESSALON PERLES PO SCH ×2 (10:16→14:02)
[2017-02-26] MEDS: SYMBICORT 160-4.5 MCG INHALER IH SCH ×2 (10:16→21:00)
[2017-02-26] MEDS: NON-FORMULARY MEDICATION (Bupropion Hcl [Wellbutrin Xl] 300 MG) PO SCH (17:28)
[2017-02-26] MEDS: ROCEPHIN 1 GM in SODIUM CHLORIDE 50 ML IV SCH (20:56)
[2017-02-27] MEDS: DUONEB NEB SCH ×3 (00:04→11:22)
[2017-02-27] MEDS: SOLU-MEDROL 125 MG IVP SCH ×3 (04:28→20:37)
[2017-02-27 07:28] LABS: BASOPHILS # (AUTO) 0.1 K/uL (0-0.2); BASOPHILS % (AUTO) 0.9 % (0.0-3.0); HEMATOCRIT 40.6 % (37.0-47.0); HEMOGLOBIN 13.7 g/dl (12.0-16.0); LYMPHOCYTES # (AUTO) 0.6 K/uL (0.60-3.4); LYMPHOCYTES % (AUTO) 5.9 (10.0-50.0); MEAN CORPUSCULAR HEMOGLOBIN 30.6 pg (27.0-31.0); MEAN CORPUSCULAR HGB CONC 33.7 (31.8-35.4); MEAN CORPUSCULAR VOLUME 90.6 fl (81.0-99.0); MONOCYTES # (AUTO) 0.4 K/uL (0.4-2.0); MONOCYTES % (AUTO) 4.2 (0-10); NEUTROPHILS # (AUTO) 8.7 K/ul (2.0-6.9); PLATELET COUNT 218 10^3/uL (140-440); RED BLOOD COUNT 4.48 10^6/ul (4.20-5.40)
[2017-02-27] MEDS: XANAX PO SCH ×4 (08:51→20:37)
[2017-02-27] MEDS: LOVENOX SUBCUT SCH (08:51)
[2017-02-27] MEDS: ASPIRIN EC PO SCH (08:51)
[2017-02-27] MEDS: LOPRESSOR PO SCH ×2 (08:51→16:40)
[2017-02-27] MEDS: PROZAC PO SCH (08:51)
[2017-02-27] MEDS: SYMBICORT 160-4.5 MCG INHALER IH SCH ×2 (08:52→20:37)
[2017-02-27 10:21] LABS: ALBUMIN 2.6 g/dL (3.4-5.0); ALBUMIN/GLOBULIN RATIO 0.59; ANION GAP 15.7; BILIRUBIN,TOTAL 0.15 mg/dL (0.00-1.20); BUN/CREATININE RATIO 35.71; CALCIUM 10.7 mg/dL (8.2-10.2); CREATININE 0.84 mg/dL (0.60-1.30); POTASSIUM 3.7 mmol/L (3.5-5.10)
[2017-02-27] MEDS: NON-FORMULARY MEDICATION (Bupropion Hcl [Wellbutrin Xl] 300 MG) PO SCH (16:07)
[2017-02-27] MEDS: NORCO 10-325 PO PRN (16:08)
[2017-02-27] MEDS: ROCEPHIN 1 GM in SODIUM CHLORIDE 50 ML IV SCH (20:37)
[2017-02-28] MEDS: SOLU-MEDROL 125 MG IVP SCH ×3 (04:03→21:22)
[2017-02-28] MEDS: ASPIRIN EC PO SCH (09:37)
[2017-02-28] MEDS: LOPRESSOR PO SCH ×2 (09:37→16:33)
[2017-02-28] MEDS: SYMBICORT 160-4.5 MCG INHALER IH SCH ×2 (09:37→21:19)
[2017-02-28] MEDS: PROZAC PO SCH (09:38)
[2017-02-28] MEDS: XANAX PO SCH ×4 (09:38→21:19)
[2017-02-28] MEDS: LOVENOX SUBCUT SCH (09:38)
[2017-02-28] MEDS: DUONEB NEB PRN (13:49)
--- NOTE | 2017-02-28 16:19 | DI ---
EXAM: PA and lateral views of the chest HISTORY: Cough COMPARISON: Chest Xray from 11/10/[address] chest from 02/24/2017 FINDINGS: There is no change compared to the CT from February 24. Again seen is a patchy area of in filtrate in the left base. There is also an infiltrate in the left apex. There is some elevation of the left hemidiaphragm consistent with some underlying volume loss. Cardiac and mediastinal silhoue ttes show no acute abnormality. No acute osseous or soft tissue abnormalities. IMPRESSION: 1. No change compared to CT. There is continued infiltrate in the left base and left apex. Recomme nd follow-up to document complete resolution.
[2017-02-28] MEDS: NON-FORMULARY MEDICATION (Bupropion Hcl [Wellbutrin Xl] 300 MG) PO SCH (16:33)
[2017-02-28] MEDS: ROCEPHIN 1 GM in SODIUM CHLORIDE 50 ML IV SCH (21:19)
[2017-03-01] MEDS: SOLU-MEDROL 125 MG IVP SCH ×3 (06:06→21:11)
[2017-03-01] MEDS: LOVENOX SUBCUT SCH (09:29)
[2017-03-01] MEDS: LOPRESSOR PO SCH ×2 (09:29→16:29)
[2017-03-01] MEDS: ASPIRIN EC PO SCH (09:29)
[2017-03-01] MEDS: SYMBICORT 160-4.5 MCG INHALER IH SCH ×2 (09:30→21:10)
[2017-03-01] MEDS: PROZAC PO SCH (09:30)
[2017-03-01] MEDS: XANAX PO SCH ×4 (09:30→21:10)
[2017-03-01] MEDS: DUONEB NEB PRN ×2 (10:46→17:00)
[2017-03-01] MEDS ORDERED: VANCOMYCIN 1 GM in SODIUM CHLORIDE 250 ML IV SCH (13:30)
[2017-03-01] MEDS: NORCO 10-325 PO PRN (15:31)
[2017-03-01] MEDS: NON-FORMULARY MEDICATION (Bupropion Hcl [Wellbutrin Xl] 300 MG) PO SCH (16:29)
[2017-03-01] MEDS: ROCEPHIN 1 GM in SODIUM CHLORIDE 50 ML IV SCH (21:10)
[2017-03-02 04:47] LABS: HEMATOCRIT 40.6 % (37.0-47.0); HEMOGLOBIN 13.6 g/dl (12.0-16.0); MEAN CORPUSCULAR HEMOGLOBIN 30.3 pg (27.0-31.0); MEAN CORPUSCULAR HGB CONC 33.5 (31.8-35.4); MEAN CORPUSCULAR VOLUME 90.4 fl (81.0-99.0); PLATELET COUNT 190 10^3/uL (140-440); RED BLOOD COUNT 4.49 10^6/ul (4.20-5.40); WHITE BLOOD COUNT 13.52 K/ul (4.6-10.2)
[2017-03-02 05:32] LABS: ALBUMIN 2.3 g/dL (3.4-5.0); ALBUMIN/GLOBULIN RATIO 0.79; ANION GAP 11.8; BILIRUBIN,TOTAL 0.2 mg/dL (0.00-1.20); BUN/CREATININE RATIO 37.17; CALCIUM 9.1 mg/dL (8.2-10.2); CREATININE 0.78 mg/dL (0.60-1.30); POTASSIUM 3.8 mmol/L (3.5-5.10); TOTAL PROTEIN 5.2 g/dL (5.8-8.1)
[2017-03-02 05:45] LABS: ANISOCYTOSIS NOT PRESENT (NOT PRESENT)
[2017-03-02] MEDS: SOLU-MEDROL 125 MG IVP SCH ×3 (05:55→20:26)
[2017-03-02] MEDS: SYMBICORT 160-4.5 MCG INHALER IH SCH ×2 (08:21→20:26)
[2017-03-02] MEDS: XANAX PO SCH ×4 (08:21→20:26)
[2017-03-02] MEDS: PROZAC PO SCH (08:21)
[2017-03-02] MEDS: ASPIRIN EC PO SCH (08:21)
[2017-03-02] MEDS: LOPRESSOR PO SCH ×2 (08:22→16:58)
[2017-03-02] MEDS: LOVENOX SUBCUT SCH (08:22)
[2017-03-02] MEDS: VANCOMYCIN 750 MG in SODIUM CHLORIDE 250 ML IV SCH ×2 (08:25→10:59)
[2017-03-02] MEDS: BACTRIM DS 800/160 MG PO SCH ×2 (11:41→20:26)
--- NOTE | 2017-03-02 13:27 | PN ---
DATE OF SERVICE: 03/01/17 SUBJECTIVE: The patient was admitted with COPD exacerbation and bilateral pneumonia. Repeat chest x-ray today showed the bilateral basilar pneumonia and the left upper lobe pneumonia which is a new one. REVIEW OF SYSTEMS: CONSTITUTIONAL: No fever, no chills. Weakness. HEENT: Normal. ENDOCRINE: No weight gain, no weight loss. CVS: No angina symptoms. No CHF symptoms. No palpitations. No atypical chest pain for CAD. No shortness of breath. No PND, no orthopnea. RESPIRATORY: Cough, no hemoptysis. GI: No nausea, no vomiting. No abdominal pain. : No hematuria. No polyuria. MUSCULOSKELETAL:. No joint swelling. PSYCHIATRIC: Not anxious. No depression. No suicidal thoughts. No homicidal thoughts. SKIN: Intact. No rash. PHYSICAL EXAMINATION: V/S: Blood pressure 115/87, respiratory rate 20, heart rate 84, temperature 97.7 with saturation 94% on 1 liters. HEENT: Normocephalic, atraumatic. Mucosa dry. Pallor positive. No icterus. NECK: Supple. No JVD, no carotid bruit. No lymphadenopathy. LUNGS: Basilar crackles left more than the right. Clear to auscultation. No rales or rhonchi. HEART: S1, S2 normal. No S3. No murmur, gallop or regurgitation. ABDOMEN: Soft, nontender. Bowel sounds active. No rigidity. No rebound or guarding. No CVA tenderness. EXTREMITIES: No clubbing, cyanosis or pedal edema. MUSCULOSKELETAL: No joint swelling. NEUROLOGIC: Awake, alert, oriented times three. No focal deficit. LYMPHATIC: No lymph nodes palpable. SKIN: Intact. LABS: WBC 10.10, hgb 13.7, hct 40.6, plt count 218, sodium 141, potassium 3.7, chloride 106, bicarb 23, BUN 30, creatinine 0.84, glucose 142. ASSESSMENT: 1. Bibasilar pneumonia 2. COPD 3. DJD spine 4. Depression PLAN: 1. Continue the Rocephin 2. Will add Vancomycin 3. Breathing treatments 4. Solu-Medrol 40 Q 8 hours TIME SPENT: More than 35 minutes MTDD
--- NOTE | 2017-03-02 14:40 | PN ---
DATE OF SERVICE: 02/28/17 SUBJECTIVE: The patient was admitted with bilateral pneumonia. She says that she is not feeling good. REVIEW OF SYSTEMS: CONSTITUTIONAL: No fever, no chills. HEENT: Normal. ENDOCRINE: No weight gain, no weight loss. CVS: No angina symptoms. No CHF symptoms. No palpitations. No atypical chest pain for CAD. No shortness of breath. No PND, no orthopnea. RESPIRATORY: Cough and congestion, no hemoptysis. GI: No nausea, no vomiting. No abdominal pain. : No hematuria. No polyuria. MUSCULOSKELETAL:. No joint swelling. PSYCHIATRIC: Not anxious. No depression. No suicidal thoughts. No homicidal thoughts. SKIN: Intact. No rash. PHYSICAL EXAMINATION: V/S: Blood pressure 156/84, respiratory rate 18, heart rate 110, temperature 98.0 with saturation 94%. HEENT: Normocephalic, atraumatic. Mucosa dry. Pallor positive. No icterus. NECK: Supple. No JVD, no carotid bruit. No lymphadenopathy. LUNGS: Basilar crackles are present left more than the right. No rales or rhonchi. HEART: S1, S2 normal. No S3. No murmur, gallop or regurgitation. ABDOMEN: Soft, nontender. Bowel sounds active. No rigidity. No rebound or guarding. No CVA tenderness. EXTREMITIES: No clubbing, cyanosis or pedal edema. MUSCULOSKELETAL: No joint swelling. NEUROLOGIC: Awake, alert, oriented times three. No focal deficit. LYMPHATIC: No lymph nodes palpable. SKIN: Intact. LABS: WBC 10.10, hgb 13.7, hct 40.6, plt count 218, sodium 141, potassium 3.7, chloride 106, bicarb 23, BUN 30, creatinine 0.84 and glucose 142 and calcium 10.7 ASSESSMENT: 1. Bilateral lower lobe pneumonia, community acquired 2. COPD exacerbation secondary to the pneumonia 3. DJD spine 4. Osteoarthritis 5. Depression 6. GERD 7. History of palpitation PLAN: 1. Chest x-ray 2. Continue the Rocephin and breathing treatments 3. Solu-Medrol 40 Q 8 hours TIME SPENT: More than 35 minutes MTDD
[2017-03-02] MEDS: NON-FORMULARY MEDICATION (Bupropion Hcl [Wellbutrin Xl] 300 MG) PO SCH (16:58)
[2017-03-02] MEDS: ROCEPHIN 1 GM in SODIUM CHLORIDE 50 ML IV SCH (20:26)
[2017-03-03] MEDS: SOLU-MEDROL 125 MG IVP SCH ×2 (04:55→12:47)
[2017-03-03] MEDS: PROZAC PO SCH (08:14)
[2017-03-03] MEDS: BACTRIM DS 800/160 MG PO SCH (08:14)
[2017-03-03] MEDS: ASPIRIN EC PO SCH (08:14)
[2017-03-03] MEDS: LOVENOX SUBCUT SCH (08:14)
[2017-03-03] MEDS: LOPRESSOR PO SCH (08:14)
[2017-03-03] MEDS: SYMBICORT 160-4.5 MCG INHALER IH SCH (08:15)
[2017-03-03] MEDS: XANAX PO SCH ×2 (08:15→12:46)
[2017-03-03 10:45] VITALS: BP 138/78; TEMP 98.2
--- NOTE | 2017-03-03 11:53 | PN ---
DATE OF SERVICE: 02/27/17 SUBJECTIVE: The patient is admitted with bilateral lower lobe pneumonia and shortness of breath. The patient is lying in bed, still feeling weak and tired, not able to get up and walk much. REVIEW OF SYSTEMS: CONSTITUTIONAL: Weak and tired. No fever, no chills. HEENT: Normal. ENDOCRINE: No weight gain, no weight loss. CVS: No angina symptoms. No CHF symptoms. No palpitations. No atypical chest pain for CAD. No shortness of breath. No PND, no orthopnea. RESPIRATORY: No cough, no hemoptysis. GI: No nausea, no vomiting. No abdominal pain. : No hematuria. No polyuria. MUSCULOSKELETAL: No joint swelling. PSYCHIATRIC: Not anxious. No depression. No suicidal thoughts. No homicidal thoughts. SKIN: Intact. No rash. PHYSICAL EXAMINATION: V/S: BP 162/78, respiratory rate 20, heart rate 89, temperature 98.2. Saturation 95 on 1L. HEENT: Normocephalic, atraumatic. Mucosa dry. NECK: Supple. No JVD, no carotid bruit. No lymphadenopathy. LUNGS: Decreased breath sounds with basilar crackles. No rales or rhonchi. HEART: S1, S2 normal. No S3. No murmur, gallop or regurgitation. ABDOMEN: Soft, nontender. Bowel sounds active. No rigidity. No rebound or guarding. No CVA tenderness. EXTREMITIES: No clubbing, cyanosis or pedal edema. MUSCULOSKELETAL: No joint swelling. NEUROLOGIC: Awake, alert, oriented times three. No focal deficit. LYMPHATIC: No lymph nodes palpable. SKIN: Intact. LABS: White count 10.10, hemoglobin 13.7, hematocrit 40.6, platelet count 218. Sodium 141, potassium 3.7, chloride 106, bicarb 23, BUN 30, creatinine 0.84. ASSESSMENT: 1. BILATERAL LOWER LOBE PNEUMONIA 2. HYPERTENSION 3. COPD, OXYGEN DEPENDENT 4. OSTEOARTHRITIS 5. DJD SPINE 6. DEPRESSION PLAN: 1. Continue Rocephin 2. Duonebs 3. Solu-Medrol 4. Daily I & Os TIME SPENT: More than 35 minutes MTDD
--- NOTE | 2017-03-03 12:53 | PN ---
DATE OF SERVICE: 02/26/17 SUBJECTIVE: The patient is admitted with COPD exacerbation and pneumonia. The patient is lying in the bed saying that she is having some coughing. Shortness of breath is better. She goes to the bathroom, comes back and gets short of breath but uses oxygen 2L which is helping her. REVIEW OF SYSTEMS: CONSTITUTIONAL: No fever, no chills. HEENT: Normal. ENDOCRINE: No weight gain, no weight loss. CVS: No angina symptoms. No CHF symptoms. No palpitations. No atypical chest pain for CAD. Shortness of breath, better. No PND, no orthopnea. RESPIRATORY: Cough. No hemoptysis. GI: No nausea, no vomiting. No abdominal pain. : No hematuria. No polyuria. MUSCULOSKELETAL:. No joint swelling. PSYCHIATRIC: Not anxious. No depression. No suicidal thoughts. No homicidal thoughts. SKIN: Intact. No rash. PHYSICAL EXAMINATION: V/S: BP 133/78, respiratory rate is 20, heart rate 101, temperature 97.9, saturation 94 on 2L. HEENT: Normocephalic, atraumatic. Mucosa dry. Pallor positive. No icterus. NECK: Supple. No JVD, no carotid bruit. No lymphadenopathy. LUNGS: Decreased breath sounds with fine basilar crackles present. No rales or rhonchi. HEART: S1, S2 normal. No S3. No murmur, gallop or regurgitation. ABDOMEN: Soft, nontender. Bowel sounds active. No rigidity. No rebound or guarding. No CVA tenderness. EXTREMITIES: No clubbing, cyanosis or pedal edema. MUSCULOSKELETAL: No joint swelling. NEUROLOGIC: Awake, alert, oriented times three. No focal deficit. LYMPHATIC: No lymph nodes palpable. SKIN: Intact. LABS: White count 7.68, hemoglobin 12.5, hematocrit 37.6, platelet count 130. Sodium 140, potassium 3.8, chloride 103, bicarb 25, BUN 19, creatinine 1.37. ASSESSMENT: 1. COPD EXACERBATION SECONDARY TO PNEUMONIA, BIBASILAR PER CT SCAN 2. DEPRESSION 3. OSTEOARTHRITIS 4. DJD SPINE PLAN: 1. Continue Rocephin 2. IV fluids 3. Duonebs 4. Lovenox for DVT prophylaxis 5. Solu-Medrol 80 q.8hr 6. Daily I & O's TIME SPENT: More than [address] [facility]
--- NOTE | 2017-03-03 13:00 | PN ---
DATE OF SERVICE: 02/25/17 SUBJECTIVE: The patient is admitted from the [facility] for COPD exacerbation and CT scan which showed bilateral lower lobe pneumonia. She is receiving Rocephin and breathing treatments. She says she feels somewhat better. REVIEW OF SYSTEMS: CONSTITUTIONAL: No fever, no chills. HEENT: Normal. ENDOCRINE: No weight gain, no weight loss. CVS: No angina symptoms. No CHF symptoms. No palpitations. No atypical chest pain for CAD. No shortness of breath. No PND, no orthopnea. RESPIRATORY: No cough, no hemoptysis. GI: No nausea, no vomiting. No abdominal pain. : No hematuria. No polyuria. MUSCULOSKELETAL:. No joint swelling. PSYCHIATRIC: Not anxious. No depression. No suicidal thoughts. No homicidal thoughts. SKIN: Intact. No rash. PHYSICAL EXAMINATION: V/S: BP 116/70, respiratory rate 20, heart rate 91, temperature 98.4, saturation 95. HEENT: Normocephalic, atraumatic. Mucosa dry. NECK: Supple. No JVD, no carotid bruit. No lymphadenopathy. LUNGS: Decreased breath sounds with basilar crackles. Mild wheezing. No rales or rhonchi. HEART: S1, S2 normal. No S3. No murmur, gallop or regurgitation. ABDOMEN: Soft, nontender. Bowel sounds active. No rigidity. No rebound or guarding. No CVA tenderness. EXTREMITIES: No clubbing, cyanosis or pedal edema. MUSCULOSKELETAL: No joint swelling. NEUROLOGIC: The patient is awake, alert, oriented times three. No focal deficit. LYMPHATIC: No lymph nodes palpable. SKIN: Intact. LABS: White count 7.68, hemoglobin 12.5, hematocrit 37.5, platelet count 130. ABGs showed pH 7.409, pc02 39.3, p02 110. Sodium 140, potassium 3.8, chloride 103, bicarb 25, BUN 19, creatinine 1.37, glucose 112. ASSESSMENT: 1. COPD EXACERBATION SECONDARY TO BILATERAL COMMUNITY ACQUIRED PNEUMONIA 2. COPD, OXYGEN DEPENDENT 3. HYPERTENSION 4. DEPRESSION 5. ANXIETY 6. DJD SPINE PLAN: 1. Continue Rocephin 1 gm daily 2. Duonebs 3. IV fluids 4. Lovenox for DVT prophylaxis 5. Solu-Medrol 80 q.8hr TIME SPENT: More than 35 minutes MTDD
--- NOTE | 2017-03-03 13:56 | DI ---
EXAM: PA and lateral views of the chest HISTORY: Pneumonia COMPARISON: Chest x-ray 02/28/[address] chest. FINDINGS: The cardiomediastinal silhouette is normal. The lungs are hyperinflated. There is bluntin g the costophrenic angles. There is no pneumothorax. There is no consolidation, nodule or mass. The osseous structures demonstrate degenerative disease. IMPRESSION: 1. No acute consolidation with hyperinflation suggestive of chronic obstructive pulmonary disease. 2. Blunting the costophrenic angles may represent trace pleural effusions versus pleural parenchymal fibrosis or atelectasis.
--- NOTE | 2017-03-03 14:28 | PN ---
DATE OF SERVICE: 03/02/17 SUBJECTIVE: The patient was admitted with bilateral lower lobe pneumonia, COPD exacerbation and bronchitis. The patient was sitting on the bed and says she has been hungry , eating a lot. Even on minimal exertion, still has shortness of breath. The patient's is in the room and discussion about lung findings with new infiltration. Vancomycin was added for this. Otherwise, no new complaints. No fever, no chills. No PND, no orthopnea. REVIEW OF SYSTEMS: CONSTITUTIONAL: No fever, no chills. HEENT: Normal. ENDOCRINE: No weight gain, no weight loss. CVS: No angina symptoms. No CHF symptoms. No palpitations. No atypical chest pain for CAD. Positive for shortness of breath on minimal exertion. No PND, no orthopnea. RESPIRATORY: No cough, no hemoptysis. GI: No nausea, no vomiting. No abdominal pain. : No hematuria. No polyuria. MUSCULOSKELETAL:. No joint swelling. PSYCHIATRIC: Not anxious. No depression. No suicidal thoughts. No homicidal thoughts. SKIN: Intact. No rash. PHYSICAL EXAMINATION: V/S: BP 146/74, respiratory rate 20, heart rate 74, temperature 97.8, saturation 97. HEENT: Normocephalic, atraumatic. Mucosa dry. NECK: Supple. No JVD, no carotid bruit. No lymphadenopathy. LUNGS: Basilar crackles on the left side more than the right. Clear to auscultation. No rales or rhonchi. HEART: S1, S2 normal. No S3. No murmur, gallop or regurgitation. ABDOMEN: Soft, nontender. Bowel sounds active. No rigidity. No rebound or guarding. No CVA tenderness. EXTREMITIES: No clubbing, cyanosis or pedal edema. MUSCULOSKELETAL: No joint swelling. NEUROLOGIC: Awake, alert, oriented times three. No focal deficit. LYMPHATIC: No lymph nodes palpable. SKIN: Intact. LABS: White count 13.52, hemoglobin 13.6, hematocrit 40.6, platelet count 190. Sodium 139, potassium 3.8, chloride 105, bicarb 26, BUN 29, creatinine 0.78. ASSESSMENT: 1. COPD EXACERBATION SECONDARY TO BILATERAL PNEUMONIA 2. DEPRESSION 3. ANXIETY 4. OSTEOARTHRITIS 5. DJD SPINE PLAN: 1. Continue Rocephin 2. 1 gm Vancomycin daily 3. Duonebs 4. Solu-Medrol 5. I will follow the patient in daily rounds TIME SPENT: More than 35 minutes HAZEL
--- NOTE | 2017-03-11 15:51 | DS ---
DATE OF SERVICE: 03/03/17 FINAL DIAGNOSIS: 1. COPD exacerbation secondary to the bilateral lower lobe pneumonia 2. History of Depression 3. Anxiety 4. GERD 5. Osteoarthritis 6. DJD spine 7. Hypertension 8. COPD oxygen dependant DISCHARGE INSTRUCTIONS: Discharge the patient home. Followup with Dr. Leonardo within one week. Appointment with Dr. Leonardo March 06 at 12:30pm. Continue the rest of the home medications. MEDICATIONS AT DISCHARGE: ProAir Xanax Symbicort Wellbutrin Prozac Hydrocodone Metoprolol Prednisone NEW PRESCRIPTIONS: Keflex 500mg twice a day for 5 days Prednisone 10mg twice a day for 5 day Use Incentive (TriFlo) at least 4-6 times daily DIET INSTRUCTIONS: Cardiac and Healthy diet ACTIVITY: As much as tolerated SMOKING: Former smoker DISEASE SPECIFIC EDUCATION: COPD Need of pneumonia vaccination Oxygen use, highly inflammable probability of the accident been discussed and verbalized understanding. HOSPITAL COURSE: Cyn Saravia who is a 77 year old female who is usually being followed by Dr. Leonardo brought by the family to the office as Dr. Leonardo [place]. I saw the patient in the office. The patient was hypoxic, shortness of breath, cough and congestion getting yellow/green phlegm. At that time the patient was directed admitted from the office. CT chest showed bilateral basilar pneumonia. WBC was normal. ABG's done which showed pH 7.409, pCO2 39.3, pO2 110. The patient was given Solu-Medrol 80 Q 8 hours, Rocephin 1 gram daily and the Azithromycin, cough syrup with breathing treatment. The hospital course was gradual and slow because of the basic condition is COPD and oxygen dependent. The patient was getting short of breath even with the minimal exertion. As the patient was feeling some better the Solu-Medrol was dropped from 80mg to 40mg and breathing treatments were continued. Antibiotic Rocephin and Azithromycin continued. Repeat chest x-ray showed the left upper lobe patch considering that is a new patch the patient was given Vancomycin then as the Vancomycin was deficit at the hospital Bactrim was given. The patient was up and about eating good and talking fine was not restless and not short of breath at sitting but with the minimal exertion the patient was getting short of breath and says that is her baseline. Offered about transitional care unit and the patient said that she wanted to go home and do the physical therapy at home. The patient was given Incentive spirometry for the breathing exercise. TIME SPENT: MORE THAN 65 MINUTES MTDD
== END 2017-03-03 16:03 | disposition home or self-care (01) | DRG 194 ==
LOC: MEDSURG A 17:08
PROVIDERS: ADMIT Emergency Medicine; ATTEND Emergency Medicine
DX: J18.9 Pneumonia, unspecified organism (principal); J44.1 Chronic obstructive pulmonary disease with (acute) exacerbation; F41.8 Other specified anxiety disorders; J18.1 Lobar pneumonia, unspecified organism; K21.9 Gastro-esophageal reflux disease without esophagitis; M19.90 Unspecified osteoarthritis, unspecified site; M47.9 Spondylosis, unspecified; I10 Essential (primary) hypertension; Z87.891 Personal history of nicotine dependence; Z99.81 Dependence on supplemental oxygen; Z79.899 Other long term (current) drug therapy
CPT/HCPCS: 36415; 80053; 81001; 82550; 82803; 83874; 84484; 85007; 85025; 87086; 87186; 93005; 93010; 94150; 94640

== ENCOUNTER 2017-03-27 13:27 | Outpatient (CLI) ==
[2012-09-03 12:35] VITALS: TEMP 97
--- NOTE | 2017-03-27 13:47 | DI ---
EXAM: CHEST FRONTAL AND LATERAL VIEWS HISTORY: Cough. COMPARISON: 03/03/2017 FINDINGS: Heart size remains within normal limits. There is at least mild aortic atherosclerosis. N o acute infiltrates are seen. No vascular congestion. There is no consolidation, visible pleural fl uid or pneumothorax. Bones reveal no acute fracture. Exaggerated thoracic kyphosis. IMPRESSION: No acute cardiopulmonary process.
== END 2017-03-27 13:28 | disposition home or self-care (01) ==
LOC: LAB 13:27
PROVIDERS: ATTEND General Practice
DX: R05 Cough (principal); R06.02 Shortness of breath
CPT/HCPCS: 36415; 80053; 83880; 85025

== ENCOUNTER 2017-06-09 13:58 | Outpatient (CLI) ==
[2012-09-03 12:35] VITALS: TEMP 97
== END 2017-06-09 13:59 | disposition home or self-care (01) ==
LOC: FCC-LAB 13:58
PROVIDERS: ATTEND General Practice
DX: R51 Headache (principal); R50.9 Fever, unspecified; R05 Cough; H92.03 Otalgia, bilateral
CPT/HCPCS: 87651; 87804

== ENCOUNTER 2017-06-12 13:05 | Inpatient (IN) ==
[2017-06-12 13:32] VITALS: BMI 25.2
[2017-06-12] MEDS ORDERED: PROAIR HFA IH PRN (14:55)
--- NOTE | 2017-06-12 15:29 | CT ---
EXAM: CT of the chest without contrast History: Short of breath, cough and fever. Comparison: Chest radiograph 03/27/2017, chest CT 02/24/2017 Technique: Multiplanar CT images through the thorax were obtained without the administration of IV c ontrast Findings: Heart size is normal. Small anterior pericardial effusion. This is stable. Coronary calc ifications. Great vessels are unremarkable. No pathologically enlarged thoracic lymph nodes. Diffu se bronchial wall thickening again noted. Since the prior chest CT, no significant interval change i n the diffuse bilateral interstitial infiltrates with tree in bud opacities and micronodules. Some o f the previously described more focal lung infiltrates have resolved. Overall there has been no sign ificant change. Mild to moderate emphysema. No suspicious lung masses or lung nodules. No pneumotho rax. There is lingular atelectasis which is stable. Trace left pleural effusion. Within the visualized upper abdomen, status post cholecystectomy. No acute osseous abnormalities. Impression: 1. No significant interval change in the bilateral interstitial lung infiltrates most compatible wit h a chronic or atypical pneumonia. 2. Emphysema. 3. Coronary artery disease.
[2017-06-12] MEDS: XANAX PO SCH ×2 (16:44→22:14)
[2017-06-12] MEDS: LOPRESSOR PO SCH (16:44)
[2017-06-12] MEDS ORDERED: NON-FORMULARY MEDICATION (Bupropion Hcl [Wellbutrin Xl] 300 MG) PO SCH (17:00)
[2017-06-12] MEDS ORDERED: ROBITUSSIN DM SYRUP PO PRN (17:08)
[2017-06-12] MEDS ORDERED: DUONEB NEB STA (19:02)
[2017-06-12] MEDS ORDERED: AVELOX 400 MG in PREMIX 250 ML NS 1 BAG IV SCH (19:30)
[2017-06-12] MEDS: SOLU-CORTEF 250 MG IVP SCH ×2 (21:45→21:47)
[2017-06-12] MEDS: NORCO 10-325 PO PRN (21:46)
[2017-06-12] MEDS: SYMBICORT 160-4.5 MCG INHALER IH SCH (22:14)
[2017-06-12] MEDS: WELLBUTRIN SR PO SCH (22:14)
[2017-06-12] MEDS ORDERED: MAXIPIME ONE (22:26)
[2017-06-12] MEDS ORDERED: AVELOX 250 ML IV ONE (22:26)
[2017-06-12] MEDS ORDERED: INFUVITE ADULT IV ONE (22:44)
[2017-06-12] MEDS: SODIUM CHLORIDE IV SCH ×2 (22:59→23:09)
[2017-06-12] MEDS: MAXIPIME IV SCH ×2 (22:59→23:09)
[2017-06-12] MEDS: INFUVITE ADULT 10 ML in D5%-1/2NS-KCL 20 MEQ/L IV SOL 1,000 ML IV SCH (23:02)
[2017-06-13] MEDS: DUONEB NEB SCH ×5 (00:02→23:40)
[2017-06-13] MEDS ORDERED: MAXIPIME ONE ×2 (04:31→04:36)
[2017-06-13] MEDS: LASIX TAB PO SCH (05:46)
[2017-06-13] MEDS: PROTONIX PO SCH (05:46)
[2017-06-13] MEDS: MAXIPIME IV SCH ×3 (06:39→20:09)
[2017-06-13] MEDS: SODIUM CHLORIDE IV SCH ×3 (06:39→20:09)
[2017-06-13] MEDS: SYMBICORT 160-4.5 MCG INHALER IH SCH ×2 (09:07→20:09)
[2017-06-13] MEDS: WELLBUTRIN SR PO SCH ×2 (09:09→20:09)
[2017-06-13] MEDS: PROZAC PO SCH (09:09)
[2017-06-13] MEDS: LOPRESSOR PO SCH ×2 (09:09→17:06)
[2017-06-13] MEDS: SOLU-CORTEF 250 MG IVP SCH ×2 (09:30→20:09)
[2017-06-13] MEDS: XANAX PO SCH ×4 (10:46→20:09)
[2017-06-13] MEDS: NORCO 10-325 PO PRN (11:37)
[2017-06-13] MEDS ORDERED: INFUVITE ADULT IV ONE (14:58)
[2017-06-13] MEDS: INFUVITE ADULT 10 ML in D5%-1/2NS-KCL 20 MEQ/L IV SOL 1,000 ML IV SCH ×2 (17:05→23:47)
[2017-06-13] MEDS: NYSTATIN ORAL SUSP PO SCH ×2 (17:06→20:09)
[2017-06-13] MEDS: AVELOX 400 MG in PREMIX 250 ML NS 1 BAG IV SCH (21:18)
[2017-06-14] MEDS: MAXIPIME IV SCH ×3 (04:11→20:07)
[2017-06-14] MEDS: SODIUM CHLORIDE IV SCH ×3 (04:11→20:07)
[2017-06-14] MEDS: LASIX TAB PO SCH (05:32)
[2017-06-14] MEDS: NYSTATIN ORAL SUSP PO SCH ×4 (05:32→20:06)
[2017-06-14] MEDS: PROTONIX PO SCH (05:32)
[2017-06-14] MEDS: DUONEB NEB SCH ×4 (06:04→23:55)
[2017-06-14] MEDS: WELLBUTRIN SR PO SCH ×2 (08:50→20:07)
[2017-06-14] MEDS: LOPRESSOR PO SCH ×2 (08:50→16:57)
[2017-06-14] MEDS: XANAX PO SCH ×4 (08:50→20:07)
[2017-06-14] MEDS: SOLU-CORTEF 250 MG IVP SCH ×2 (08:50→20:06)
[2017-06-14] MEDS: PROZAC PO SCH (08:50)
[2017-06-14] MEDS: SYMBICORT 160-4.5 MCG INHALER IH SCH ×2 (08:51→20:06)
[2017-06-14] MEDS ORDERED: INFUVITE ADULT IV ONE ×2 (09:05→21:03)
[2017-06-14] MEDS: INFUVITE ADULT 10 ML in D5%-1/2NS-KCL 20 MEQ/L IV SOL 1,000 ML IV SCH ×2 (09:37→21:07)
[2017-06-14] MEDS: NORCO 10-325 PO PRN (12:21)
[2017-06-14] MEDS: LOVENOX SUBCUT SCH (19:04)
[2017-06-14] MEDS: AVELOX 400 MG in PREMIX 250 ML NS 1 BAG IV SCH (21:08)
[2017-06-15] MEDS: SODIUM CHLORIDE IV SCH ×3 (04:29→21:47)
[2017-06-15] MEDS: MAXIPIME IV SCH ×3 (04:29→21:47)
[2017-06-15] MEDS: DUONEB NEB SCH ×4 (05:30→23:12)
[2017-06-15] MEDS: LASIX TAB PO SCH (05:37)
[2017-06-15] MEDS: PROTONIX PO SCH (05:37)
[2017-06-15] MEDS: NYSTATIN ORAL SUSP PO SCH ×4 (05:37→21:50)
[2017-06-15] MEDS: PROZAC PO SCH (09:47)
[2017-06-15] MEDS: WELLBUTRIN SR PO SCH ×2 (09:48→21:47)
[2017-06-15] MEDS: LOPRESSOR PO SCH ×2 (09:48→18:39)
[2017-06-15] MEDS: SOLU-CORTEF 250 MG IVP SCH (09:49)
[2017-06-15] MEDS: SYMBICORT 160-4.5 MCG INHALER IH SCH ×2 (09:49→21:47)
[2017-06-15] MEDS: XANAX PO SCH ×4 (09:50→21:47)
[2017-06-15] MEDS: LOVENOX SUBCUT SCH (09:59)
[2017-06-15] MEDS: NORCO 10-325 PO PRN (11:40)
[2017-06-15] MEDS ORDERED: INFUVITE ADULT IV ONE (14:22)
[2017-06-15] MEDS: INFUVITE ADULT 10 ML in D5%-1/2NS-KCL 20 MEQ/L IV SOL 1,000 ML IV SCH (14:30)
--- NOTE | 2017-06-15 14:37 | PN ---
DATE OF VISIT: 06/13/17 SUBJECTIVE: The patient was seen in the evening and her vital signs showed a Temperature 97.8, pulse 81, blood pressure 150/83, respiratory rate 20, oxygen saturation 96 with 2 liters of oxygen. I asked her how she feels and she claims that she is feeling better. She denies any chest pain and the patient today is not dyspneic or tachypneic compared to admission. She had a low grade fever earlier at 10:00am, 99.7 and 99.1. FACE: Symmetrical and equal with no facial weakness and no tenderness in the frontal maxillary sinus areas LUNGS: Breath sounds are diminished on both sides with rales on the left. There is some expiratory wheezing on the left and non on the right. The wheeze is also audible anteriorly. Blood cultures are negative. Condition is improved and stable. MTDD
--- NOTE | 2017-06-15 14:43 | PN ---
DATE OF VISIT: 06/14/17 SUBJECTIVE: The patient this evening is alert and responsive and feeling better. She is not dyspneic or tachypneic. She denies any chest pain. No tenderness in the frontal maxillary sinus areas to palpation. LUNGS: Still has few rales of the left with minimal expiratory wheezing. Breath sounds are diminished in both sides ABDOMEN: Protuberant, soft and nontender LOWER EXTREMITIES: No edema, no tenderness in the calf muscles. Blood cultures are still negative. The patient's CBC showed mild to moderate anemia, normal WBC, slightly lower plt count 133,000. Potassium 3.3 slightly higher than yesterday, EGFR 67, BUN 14 higher than admission of 12. Urinalysis done yesterday was mild abnormalities but not significant except for the cast of 2-5. CONDITION: Improved. MTDD
[2017-06-15] MEDS: AVELOX 400 MG in PREMIX 250 ML NS 1 BAG IV SCH (22:52)
[2017-06-16] MEDS: DUONEB NEB SCH ×4 (06:00→23:40)
[2017-06-16] MEDS: MAXIPIME IV SCH ×3 (06:05→20:17)
[2017-06-16] MEDS: LASIX TAB PO SCH (06:05)
[2017-06-16] MEDS: PROTONIX PO SCH (06:05)
[2017-06-16] MEDS: SODIUM CHLORIDE IV SCH ×3 (06:05→20:17)
[2017-06-16] MEDS: INFUVITE ADULT 10 ML in D5%-1/2NS-KCL 20 MEQ/L IV SOL 1,000 ML IV SCH ×2 (07:33→13:40)
[2017-06-16] MEDS: NYSTATIN ORAL SUSP PO SCH ×4 (07:33→20:18)
[2017-06-16] MEDS: WELLBUTRIN SR PO SCH ×2 (08:25→20:17)
[2017-06-16] MEDS: SYMBICORT 160-4.5 MCG INHALER IH SCH ×2 (08:25→20:17)
[2017-06-16] MEDS: NORCO 10-325 PO PRN (08:25)
[2017-06-16] MEDS: XANAX PO SCH ×4 (08:25→20:17)
[2017-06-16] MEDS: PROZAC PO SCH (08:25)
[2017-06-16] MEDS: LOPRESSOR PO SCH ×2 (08:25→16:56)
[2017-06-16] MEDS: LOVENOX SUBCUT SCH (08:25)
[2017-06-16] MEDS ORDERED: INFUVITE ADULT IV ONE (13:28)
--- NOTE | 2017-06-16 14:48 | HP ---
CHIEF COMPLAINT: Fever, increasing shortness of breath and cough. HISTORY OF PRESENT ILLNESS: This patient was seen at the office on 06/09/17 complaining of not feeling well today and had been up since 3:00am with a bad headache, cough plus nausea. The nausea was relieved by Zofran. She also had a fever plus nasal congestion and body aches more on the ribs plus ear each in both ears. The patient had not used any over the counter medications. The patient at that time was recorded to have a temperature of 98.9, pulse 89,. respiratory rate 20 and oxygen saturation 92 with 2 liters. She had a negative rapid A and B influenza and also negative rapid strep. The patient had tenderness in the frontal maxillary sinus areas to palpation under pressure. LUNGS: had bilateral diminished breath sounds. HEART: Normal sinus rhythm The patient was prescribed Omnicef 300mg twice a day for one week and Phenergan suppository 25mg Q 12 hours #12. She also was prescribed the Hydrocodone/APAP a chronic medication. The patient was given a followup in one week. The patient's however contacted me on 06/12/17 telling me that his is getting more problems with shortness of breath, as well as cough. She also had a fever of 100.7. I felt that this patient probably needed admission because of the chronic problems that she had been experiencing as well as the respiratory failure which is probably exacerbated. The patient did come to the hospital for admission. PAST PERSONAL HISTORY: The patient had cholecystectomy Abdominal hysterectomy Bilateral cataract extraction Chronic tobacco use COPD, severe, respiratory failure Depression FAMILY HISTORY: Sister had lung carcinoma Brother had heart disease Members of the family had asthma Mother had congestive heart failure and coronary artery disease and also had diabetes mellitus. Some members on the Maternal side had CVA. SOCIAL HISTORY: The patient is and resides with her . Her children are grown. This is her second marriage. MEDICATIONS: Symbicort 160/4.5mcg one puff twice a day ProAir HFA one puff twice a day as needed Metoprolol Tartrate 50mg twice a day Alprazolam 1.5mg four times a day Pantoprazole 40mg daily Wellbutrin XL 300mg daily Lasix 20mg daily Prozac 10mg capsule daily Hydrocodone/APAP 10-325mg one tablet one to twice a day PRN ALLERGIES: Codeine REVIEW OF SYSTEMS: CONSTITUTIONAL: The patient has fever but no chills and fatigue. NAILER MACHINE: The patient has severe headache but no history of syncope or seizure disorder. The patient is alert. VISUAL: The denies any doubled vision, blurred vision or transient loss of vision. AUDITORY: The patient's hearing is adequate. Had pain in both ear but no abnormalities noted,three days ago RESPIRATORY: The patient has cough, fever with shortness of breath. CARDIOVASCULAR: Denies any chest pain or chest tightness. GASTROINTESTINAL: Appetite has decreased. She had nausea relieved by Zofran. Denies any abdominal pain or diarrhea. GENITOURINARY: Denies any burning sensation on urination. MUSCULOSKELETAL: The patient was complaining of muscular aches throughout. ENDOCRINE: Negative INTEGUMENT: Denies any rash or pleuritis. HEMATOLOGIC: No history of prolonged bleeding PSYCHIATRIC: Affect is normal PHYSICAL EXAMINATION: GENERAL: We have a 77 year old Female who is known to be a chronic smoker but had stopped finally and was admitted to hospital because of fever, cough, muscle aches, headaches and increasing shortness of breath. VITAL SIGNS: Temperature 97.9 orally, pulse 109, blood pressure left 139/79 and right 142/77, respiratory rate 18, oxygen saturation 96% 2 liters of oxygen. HEAD: Unremarkable, scalp has no active dermitis FACE: Symmetrical and equal with no facial weakness with some tenderness under pressure in the frontal maxillary sinus areas. EYES: Pupils equal/reactive to light. About 3mm in size and round. Conjunctivae not pale. Sclerae not icteric. EARS: No redness of the canal, no significant cerumen. Light reflex both sides are good. MOUTH: Unremarkable. THROAT: No inflammation, tumors or exudate. NECK: No masses. No bruit. No tenderness. No rigidity. CHEST: Symmetrical and equal with acceptable expansion.No tenderness. LUNGS: Breathing sounds are markedly diminished in both sides. The patient has wheezing inspiratory plus expiratory more on the left side. There are some rale on the right. HEART: Audible and regular with good tones. No murmurs. ABDOMEN: Protuberant and soft with no remarkably tenderness. No masses. Bowel sounds are active and no bruit. EXTERNAL GENITALIA: Not examined RECTAL: Not performed LOWER EXTREMITIES: Essentially symmetrical and equal. Anterior tibials are present. UPPER EXTREMITIES: Symmetrical and equal ASSESSMENT: 1. COPD with respiratory failure with acute exacerbation 2. Viral syndrome 3. Frontal and maxillary sinusitis, improved 4. Chronic tobacco use and abuse, stopped not too long ago 5. History of chronic headache 6. History of GERD PROGNOSIS: Guarded. MTDD
[2017-06-16] MEDS: AVELOX 400 MG in PREMIX 250 ML NS 1 BAG IV SCH (21:49)
[2017-06-17] MEDS: DUONEB NEB SCH ×3 (04:36→18:05)
[2017-06-17] MEDS ORDERED: INFUVITE ADULT IV ONE ×2 (05:26→19:51)
[2017-06-17] MEDS: INFUVITE ADULT 10 ML in D5%-1/2NS-KCL 20 MEQ/L IV SOL 1,000 ML IV SCH ×3 (05:30→23:21)
[2017-06-17] MEDS: PROTONIX PO SCH (05:31)
[2017-06-17] MEDS: LASIX TAB PO SCH (05:31)
[2017-06-17] MEDS: SODIUM CHLORIDE IV SCH ×3 (05:31→22:13)
[2017-06-17] MEDS: MAXIPIME IV SCH ×3 (05:31→22:13)
[2017-06-17] MEDS: LOPRESSOR PO SCH ×2 (08:05→16:58)
[2017-06-17] MEDS: NYSTATIN ORAL SUSP PO SCH ×4 (08:05→20:05)
[2017-06-17] MEDS: XANAX PO SCH ×4 (08:06→20:04)
[2017-06-17] MEDS: PROZAC PO SCH (08:06)
[2017-06-17] MEDS: WELLBUTRIN SR PO SCH ×2 (08:06→20:04)
[2017-06-17] MEDS: SYMBICORT 160-4.5 MCG INHALER IH SCH ×2 (08:07→20:04)
[2017-06-17] MEDS: LOVENOX SUBCUT SCH (08:07)
[2017-06-17] MEDS: NORCO 10-325 PO PRN (09:34)
[2017-06-17] MEDS: K-DUR PO SCH ×2 (14:27→16:58)
--- NOTE | 2017-06-17 14:49 | PN ---
DATE OF VISIT: 06/15/17 SUBJECTIVE: 77 year old female admitted to the hospital because of cough with some fever and increasing shortness of breath. The patient today claimed that she is feeling better. She was seen at noon time. She is not dyspneic or tachypneic. VITALS: Temperature 98 orally, pulse 90, blood pressure 153/86, respiratory rate 20, oxygen saturation 97at 2 liters. Her oxygen needs to be reduced to 1.5. LUNGS: Still has diminished breath sounds in both sides but no wheezing. The wheezing has resolved but she has rales in both lung palomares. Rales are scattered and few. HEART: Audible and regular with good tones The patient did eat 100% of her lunch today. CBC showed normal WBC 7,470, hgb 11.7 similar to admission, neutrophils 80 but no stabs. Chemistry potassium is rising now 3.4. Albumin is 2.9 and was 3.1 on admission. BNP on admission was normal 113. The patient claimed that she is feeling better. Solu-Cortef was discontinued today. Microbiology blood cultures still negative after three days. The chest CT again on admission showed no significant changes from the previous. The patient does have bilateral interstitial lung infiltrates which was present previously. Probably chronic or a typical pneumonia. We still do not have the report for the antibodies for Chlamydia as well Mycoplasma. MTDD
[2017-06-17] MEDS: AVELOX 400 MG in PREMIX 250 ML NS 1 BAG IV SCH (20:02)
[2017-06-18] MEDS: NYSTATIN ORAL SUSP PO SCH ×3 (05:42→16:53)
[2017-06-18] MEDS: MAXIPIME IV SCH (05:42)
[2017-06-18] MEDS: PROTONIX PO SCH (05:42)
[2017-06-18] MEDS: SODIUM CHLORIDE IV SCH (05:42)
[2017-06-18] MEDS: LASIX TAB PO SCH (05:42)
[2017-06-18] MEDS: DUONEB NEB SCH ×3 (05:45→13:45)
[2017-06-18] MEDS: LOPRESSOR PO SCH ×2 (09:23→16:52)
[2017-06-18] MEDS: K-DUR PO SCH ×2 (09:23→16:53)
[2017-06-18] MEDS: PROZAC PO SCH (09:23)
[2017-06-18] MEDS: WELLBUTRIN SR PO SCH (09:23)
[2017-06-18] MEDS: NORCO 10-325 PO PRN ×2 (09:24→10:41)
[2017-06-18] MEDS: LOVENOX SUBCUT SCH (09:24)
[2017-06-18] MEDS: SYMBICORT 160-4.5 MCG INHALER IH SCH (09:24)
[2017-06-18] MEDS: XANAX PO SCH ×3 (09:24→16:52)
--- NOTE | 2017-06-18 15:47 | DI ---
EXAM: Chest two views HISTORY: Follow up pneumonia COMPARISON: None TECHNIQUE: Two views of the chest were performed FINDINGS: Patchy left basilar infiltrate. There is no pleural effusion or pneumothorax. The heart is normal in size. The mediastinal contour is normal. There are no acute abnormalities of the bones . IMPRESSION: Patchy left basilar interstitial infiltrate.
[2017-06-18] MEDS ORDERED: AVELOX PO STA (17:39)
[2017-06-18] MEDS ORDERED: AVELOX ONE (17:41)
[2017-06-18 17:51] VITALS: BP 127/69; TEMP 98.8
[2017-06-18] MEDS ORDERED: AVELOX PO SCH (21:00)
--- NOTE | 2017-06-22 15:14 | PN ---
DATE OF VISIT: 06/16/17 SUBJECTIVE: The patient today is alert and feeling much better. She is not dyspneic or tachypneic with 2 liters of nasal oxygen. VITAL SIGNS: Temperature 98.6 orally, pulse 75, blood pressure 139/77, respiratory rate 16, oxygen saturation 93 at 2 liters of nasal oxygen. She did eat 70% of her dinner. CBC showed normal WBC 7.8, hgb 11.8, hct 35.6, MCV and MCH normal. Electrolytes are acceptable with Potassium at 3.2. Renal panel is normal. Albumin 2.9. This patient was advised to eat more protein, a plant protein or meat protein. General appearance is good, color is without any cyanosis. NECK: No masses and no bruit LUNGS: Breath sounds are diminished on both sides with rales on both lung field , scattered and few. No wheezing. HEART: Audible and regular with good tones. ABDOMEN: Protuberant and soft with no remarkably tenderness EXTREMITIES: No tenderness in the calf muscles CONDITION: IMPROVED. This patient claimed to have not had resumed smoking. I congratulated her for not resuming the habit. HAZEL
--- NOTE | 2017-06-22 15:17 | PN ---
DATE OF VISIT: 06/17/17 SUBJECTIVE: 77 year old female was admitted because of exacerbation of chronic bronchitis and respiratory failure. She is improving. She is feeling much better and she is no longer dyspneic or tachypneic. Coughing is less. VITAL SIGNS: Temperature is 98.1, pulse 83, blood pressure 133/76, respiratory rate 20, oxygen saturation 98 at 2 liters. Her appetite is good. She did eat about 70% of her dinner and 100% yesterday. No labs done today. Informed the patient that we will do an arterial blood gasses tomorrow without oxygen and see what happens. HAZEL
--- NOTE | 2017-06-25 13:07 | DS ---
PATIENT IDENTIFICATION: 77-year-old female is known to have chronic obstructive lung disease, severe with respiratory failure. She was seen initially at the office on complaining of not feeling well. She had a headache, cough with nausea. The nausea was relieved by Zofran. The patient at the office was felt to have upper respiratory problem and was tested for rapid influenza A and B and rapid strep. All of these were negative. The patient had tenderness in the frontal sinus areas and so the patient was prescribed Omnicef to be taken 300 mg twice a day. The patient's did call me on 06/12 informing me that she was getting worse and has more problems breathing. I then advised admission to the hospital for further examination and treatment. HOSPITAL COURSE: The patient on examination indeed was dyspneic and tachypneic. Lungs have diminished breath sounds with inspiratory plus expiratory wheeze. Wheezing was more on the left. The right base has rales. Heart is normal sinus rhythm. Abdomen protuberant, nontender. Chest CT on admission showed findings consisting of bilateral interstitial infiltrates essentially unchanged from the previous. This probably is secondary to chronic or atypical pneumonia. Signs of emphysema plus coronary artery disease. Blood cultures were obtained on admission and the patient was medicated with Avelox 400 mg intravenously daily and Avelox 400 mg intravenously daily and Cefepime 2 gm intravenously q.8hr. The patient was given intravenous fluids consisting of Dextrose 5% in 1/2 saline, 1000 cc plus 20 of KCL plus multivitamin. IV ran at 83 cc/hr. The patient was continued on Symbicort 160/ 4.5 one puff twice a day, Metoprolol Tartrate was also continued at 50 mg twice a day as well as Wellbutrin but the hospital does not have the 300 mg XL so she was given 150 SR twice a day. Duoneb nebulizer was given every 6 hours. Prilosec was continued as well as Pantoprazole. Lovenox 40 mg subcutaneously daily was instituted. The patient continued to improve. Temperature remained normal except for one occasion, 99.1 on 06/17/17 at 10 o'clock in the morning. The blood cultures were negative times five days. Hemoglobin, hematocrit stayed about the same at 11 slightly below 12. Platelet count initially was 117 on admission but did return to normal to 161 on 06/15/17 and 148 on 06/16/17. Chlamydia species IgM is less than 0.8 from IgG antibody is 3.31 above normal, range is 0 to 0.9. Influenza A and B antibody titer is 1:32 for both. Mycoplasma pneumonia IgG and IgM are normal. The arterial blood gases done on FI02 28 showed an oxygen saturation of 97, pH 7.380, pc02 48.6, p02 92, Hc03 28.8, total c02 30, base excess +4. Repeat arterial blood gases the day of discharge on room air showed oxygen saturation of 93, pH 7.454, pc02 43.4, p02 64, Hc03 30.4, total c02 32, base excess +7. Electrolytes were normal with a potassium 4.1 and renal panel is normal with a Gfr of 71. The patient had experienced nausea with Cefepime administration and so the Cefepime was discontinued and the patient was continued on Avelox. The patient, on the day of discharge was alert, ambulatory with no dyspnea or tachypnea. The lungs have better air exchange and more rales heard in both lung palomares but no wheezing. Vital signs 06/18/17 5:50 p.m. showed a temperature 98.8 orally, pulse 84, BP 127/69, respiratory rate 16, oxygen saturation 98 on 2L. This patient was advised to reduce the oxygen concentration between 1 to 1.5 instead of 2. She is also advised to start ambulating slowly and increasingly. Chest x-ray on the day of discharge showed patchy left basilar interstitial infiltrate. The patient on discharge was prescribed Moxifloxacin 400 mg daily p.o. and resumed most of her medications. The patient is to see me next week. I had explained to the patient as well as the with regards to the PPI. I did tell them that the medication does not correct the reflux problems, it just reduces the acid. PPI had been documented to increase the chances of pneumonia. She does have some burning, that she should take TUMS. It should be used p.r.n. The patient was on Pantoprazole. FINAL DIAGNOSES: 1. Acute exacerbation of chronic bronchitis 2. Chronic pneumonitis maybe secondary to Chlamydia 3. History of chronic tobacco use and abuse, stopped not too long ago 4. History of depression on Wellbutrin 5. Viral syndrome to be confirmed 6. Elevated A & B antibody titer 1:32 7. History of frontal and maxillary sinusitis improved 8. History of chronic headache 9. History of GERD PLAN: 1. Will repeat Influenza A and B antibody titer upon her return visit for followup [facility]
== END 2017-06-18 18:30 | disposition home or self-care (01) | DRG 190 ==
LOC: MEDSURG B 13:05
PROVIDERS: ADMIT General Practice; ATTEND General Practice
DX: J44.1 Chronic obstructive pulmonary disease with (acute) exacerbation (principal); J16.0 Chlamydial pneumonia; J96.90 Respiratory failure, unspecified, unspecified whether with hypoxia or hypercapnia; F32.9 Major depressive disorder, single episode, unspecified; B34.9 Viral infection, unspecified; J32.1 Chronic frontal sinusitis; J32.0 Chronic maxillary sinusitis; R11.0 Nausea; R51 Headache; K21.9 Gastro-esophageal reflux disease without esophagitis; F17.211 Nicotine dependence, cigarettes, in remission; D64.9 Anemia, unspecified; R50.9 Fever, unspecified; Z79.899 Other long term (current) drug therapy
CPT/HCPCS: 36415; 80053; 81001; 82803; 83880; 85007; 85025; 86631; 86632; 86710; 86738; 87040; 94640; 99223; 99231; 99232; 99239

== ENCOUNTER 2017-07-24 12:48 | Outpatient (CLI) | payer OTHER ==
[2012-09-03 12:35] VITALS: TEMP 97
--- NOTE | 2017-07-24 13:14 | CT ---
EXAM: CT of the chest without contrast History: Short of breath Comparison: Chest CT 06/12/2017 Technique: Multiplanar CT images through the thorax were obtained without the administration of IV c ontrast Findings: Heart size is normal. Trace anterior pericardial effusion. Great vessels are unremarkable . No pathologically enlarged thoracic lymph nodes. Diffuse bronchial wall thickening. Since the prio r chest CT, significantly improved bilateral interstitial lung infiltrates with minimal residual. No consolidated pneumonia. No pleural fluid and no pneumothorax. Emphysema again noted. No suspiciou s lung masses or lung nodules. Within the visualized upper abdomen, status post cholecystectomy. No acute osseous abnormalities. Impression: 1. No consolidated pneumonia. 2. Diffuse bronchial wall thickening. 3. Since the prior chest CT, significantly improved bilateral interstitial lung infiltrates with min imal residual. 4. Emphysema
== END 2017-07-24 12:49 | disposition home or self-care (01) ==
LOC: RAD 12:48
PROVIDERS: ATTEND General Practice
DX: R06.02 Shortness of breath (principal); R45.0 Nervousness
CPT/HCPCS: 36415; 80053; 83880; 84443; 85025

== ENCOUNTER 2017-12-16 16:22 | Outpatient (CLI) ==
[2012-09-03 12:35] VITALS: TEMP 97
== END 2017-12-16 16:23 | disposition home or self-care (01) ==
LOC: FCC-LAB 16:22
PROVIDERS: ATTEND General Practice
DX: J44.9 Chronic obstructive pulmonary disease, unspecified (principal); R06.02 Shortness of breath; Z79.899 Other long term (current) drug therapy
CPT/HCPCS: 36415; 80053; 80061; 81001; 83880; 85025; 87086; 87186

== ENCOUNTER 2017-12-18 13:08 | Outpatient (CLI) ==
[2012-09-03 12:35] VITALS: TEMP 97
--- NOTE | 2017-12-18 15:33 | CT ---
EXAM: CT of the chest without contrast History: Chronic obstructive pulmonary disease Comparison: Chest CT 07/24/2017 Technique: Multiplanar CT images through the thorax were obtained without the administration of IV c ontrast. Findings: Heart size is within normal limits. Persistent small anterior pericardial effusion. Meghana nary calcifications. No thoracic aortic aneurysm. No pathologically enlarged thoracic lymph place. Emphysema again noted. The bronchial wall thickening has improved. No consolidation. No pleural f luid and no pneumothorax. No suspicious lung masses or lung nodules. Within the visualized upper abdomen, status post cholecystectomy. No acute osseous abnormalities. Impression: 1. No acute intrathoracic process. 2. Improved bronchial wall thickening. 3. Coronary artery disease. 4. Emphysema. 5. No change in the small anterior pericardial effusion
== END 2017-12-18 13:09 | disposition home or self-care (01) ==
LOC: RAD 13:08
PROVIDERS: ATTEND General Practice
DX: J44.9 Chronic obstructive pulmonary disease, unspecified (principal)

== ENCOUNTER 2018-07-22 12:53 | Outpatient (CLI) ==
[2012-09-03 12:35] VITALS: TEMP 97
--- NOTE | 2018-07-22 14:15 | DI ---
EXAM: CHEST FRONTAL AND LATERAL VIEWS HISTORY: Chronic obstructive pulmonary disease. COMPARISON: 06/18/2017 FINDINGS: Heart size approaching upper limit normal. Atherosclerotic disease. Mild hyperinflation. There are scattered calcifications suggesting old granulomatous disease. No acute infiltrates are seen. No vascular congestion. There is no consolidation, visible pleural fluid or pneumothorax. Anam pepito reveal no acute fracture. IMPRESSION: Findings which can be consistent with the patient's history of chronic obstructive pulm onary disease. Currently no acute infiltrates are identified.
== END 2018-07-22 12:54 | disposition home or self-care (01) ==
LOC: RAD 12:53
PROVIDERS: ATTEND General Practice
DX: R06.02 Shortness of breath (principal); J44.9 Chronic obstructive pulmonary disease, unspecified; I50.9 Heart failure, unspecified; R53.83 Other fatigue; R53.1 Weakness; F33.2 Major depressive disorder, recurrent severe without psychotic features
CPT/HCPCS: 36415; 80053; 80061; 81001; 83880; 85025

== ENCOUNTER 2018-07-23 07:39 | Outpatient (CLI) ==
[2012-09-03 12:35] VITALS: TEMP 97
== END 2018-07-23 07:40 | disposition home or self-care (01) ==
LOC: LAB 07:39
PROVIDERS: ATTEND General Practice
DX: R53.83 Other fatigue (principal); R53.1 Weakness
CPT/HCPCS: 81001; 87086; 87186

== ENCOUNTER 2018-07-31 17:01 | Emergency (ER) | payer OTHER ==
[2018-07-31 17:17] VITALS: TEMP 99.2; BMI 23.6
[2018-07-31] MEDS ORDERED: DUONEB NEB STA ×2 (19:02→20:13)
--- NOTE | 2018-07-31 19:02 | ED.PDOC ---
General Stated Complaint: Shortness of breath. NO IMPROV ON HOME O2 or using SYMBICORT. HAS NEB AT HOME BUT NOT USING. Time Seen by Physician: 18:40 Mode of Arrival: Wheelchair Information Source: Patient, Family Exam Limitations: No limitations Nursing and Triage Documentation Reviewed and Agree: Yes Does patient meet sepsis criteria?: No System Inflammatory Response Syndrome: Not Applicable <MURPHY MILLS - Last Filed: 07/31/18 19:42> <MURPHY RED - Last Filed: 07/31/18 21:15> ED Provider: Dr. MURPHY RED MD Chief Complaint: Respiratory Complaint [facility] Sepsis Protocol: For patient's 13 years and over: Temp is 96.8 and below OR 101 and greater Pulse >90 BPM Resp >20/minute Acutely Altered Mental Status Are patient's symptoms suggestive of a new infection, such as: -Pneumonia -Skin, Soft Tissue -Endocarditis -UTI -Bone, Joint Infection -Implantable Device -Acute Abdominal Infection -Wound Infection -Meningitis -Blood Stream Catheter Infection -Unknown Respiratory Complaint Exam - Shortness of Air Complaint/Exam Onset/Duration: Earlier today Symptoms Are: Still present Timing: Constant Initial Severity: Moderate Current Severity: Moderate Character: Reports: Dyspnea at rest, Dyspnea on exertion Aggravating: Reports: Movement, Deep breaths, Recumbent position, Weather. Denies: URI, Smoke exposure Alleviating: Reports: None Associated Signs and Symptoms: Reports: Cough, Wheezing, Labored breathing. Denies: Chest pain with cough, Chest pain, Fever, Chills, Diaphoresis, Nasal congestion, Dizziness, Calf pain, Calf swelling, Edema, Rapid breathing, Decreased intake Related History: Reports: Similar episode History of Healthcare-Acquired Pneumonia: No Pulmonary Embolism Risk Factors: Reports: None Cardiac Risk Factors: Reports: None Pseudomonas Risk Factors: Reports: None Tuberculosis Risk Factors: Reports: None Home Oxygen Use: Yes Respiratory Distress: Mild Stridor Present: No Tracheal Deviation: No Subcutaneous Emphysema: No Accessory Muscle Use: No Retractions: Not Present Diminished Breath Sounds: No Prolonged Expiratory Phase: No Unable to Speak Full Sentences: No Fatigue: Yes Leg Swelling: No Jerilyn's Sign Present: No Kussmaul Respirations: No Differential Diagnoses: COPD Exacerbation <MURPHY MILLS - Last Filed: 07/31/18 19:42> Review of Systems - Review Of Systems Constitutional: Reports: No symptoms Eyes: Reports: No symptoms Ears, Nose, Mouth, Throat: Reports: No symptoms Respiratory: Reports: Short of air, Wheezing Cardiac: Reports: No symptoms GI: Reports: No symptoms : Reports: No symptoms Musculoskeletal: Reports: No symptoms Skin: Reports: No symptoms Neurological: Reports: No symptoms Endocrine: Reports: No symptoms Hematologic/Lymphatic: Reports: No symptoms All Other Systems: Reviewed and Negative <MURPHY MILLS - Last Filed: 07/31/18 19:42> Past Medical History - Past Medical History Endocrine: Reports: None Cardiovascular: Reports: CAD, Hypertension Respiratory: Reports: COPD (2 liter dependent. ), Pneumonia Hematological: Reports: None Gastrointestinal: Reports: None Genitourinary: Reports: None Neuro/Psych: Reports: Anxiety Musculoskeletal: Reports: None Cancer: Reports: None Last Menstrual Period: N/A - Surgical History General Surgical History: Reports: Hysterectomy, Cholecystectomy, Other (D and C ) - Family History Family History: Reports: Unknown - Social History Smoking Status: Former smoker Hx Substance Use: No Alcohol Screening: None - Immunizations Tetanus Shot up to Date: Yes <MURPHY MILLS - Last Filed: 07/31/18 19:42> Physical Exam - Physical Exam Appearance: Ill-appearing Ill-appearing: Mild Pain Distress: None Eyes: BASIL, EOMI, Conjunctiva clear ENT: Ears normal, Nose normal, Oropharynx normal Respiratory: Airway patent, Breath sounds clear, Breath sounds diminished, Wheezes Cardiovascular: RRR, Pulses normal, No rub, No murmur GI/: Soft, Nontender, No masses, Bowel sounds normal, No Organomegaly Musculoskeletal: Normal strength, ROM intact, No edema, No calf tenderness Skin: Warm, Dry, Normal color Neurological: Sensation intact, Motor intact, Reflexes intact, Cranial nerves intact, Alert, Oriented Psychiatric: Affect appropriate, Mood appropriate <MURPHY MILLS - Last Filed: 07/31/18 19:42> Interpretation - EKG Interpretation Time of EKG #1: 19:10 Rate: Normal Rhythm: Sinus Ectopy: None ST Segment: Normal Interpretation: RBBB <MURPHY MILLS - Last Filed: 07/31/18 19:42> Physician Notification - Case Discussed Physician Notified: Dr Red to assume care through discharge Time of Notification: 19:10 <MURPHY MILLS - Last Filed: 07/31/18 19:42> Critical Care Note - Critical Care Note Total Time (mins): 0 <MURPHY RED - Last Filed: 07/31/18 21:15> Course - Course Hematology/Chemistry: 07/31/18 19:30 07/31/18 19:30 <MURPHY RED - Last Filed: 07/31/18 21:15> - Course Orders, Labs, Meds: Lab Review 07/31/18 07/31/18 07/31/18 18:57 19:11 19:30 WBC 7.05 RBC 4.21 Hgb 12.4 Hct 39.7 MCV 94.3 MCH 29.5 MCHC 31.2 L RDW Coeff of Samia 12.4 Plt Count 118 L Immature Gran % (Auto) 0.1 Neut % (Auto) 65.7 Lymph % (Auto) 26.5 [place] % (Auto) 5.8 Eos % (Auto) 1.6 Baso % (Auto) 0.3 Immature Gran # (Auto) 0.0 Neut # (Auto) 4.6 Lymph # (Auto) 1.9 [place] # (Auto) 0.4 Eos # (Auto) 0.1 Baso # (Auto) 0.0 D-Dimer (Manual) Puncture Site Lb O2 Saturation 92.0 L ABG pH 7.352 ABG pCO2 51.2 H ABG pO2 69.0 L ABG HCO3 28.4 H ABG Total CO2 30 H ABG Base Excess 3 H FiO2 % 21.0 Sodium Potassium Chloride Carbon Dioxide Anion Gap BUN Creatinine Estimated GFR (MDRD) BUN/Creatinine Ratio Glucose Calcium Iron Total Bilirubin AST ALT Alkaline Phosphatase Troponin I Total Protein Albumin Globulin Albumin/Globulin Ratio Procalcitonin Influ A Molecular Assay Negative by naat Influ B Molecular Assay Negative by naat 07/31/18 07/31/18 07/31/18 19:30 19:30 19:30 WBC RBC Hgb Hct MCV MCH MCHC RDW Coeff of Samia Plt Count Immature Gran % (Auto) Neut % (Auto) Lymph % (Auto) [place] % (Auto) Eos % (Auto) Baso % (Auto) Immature Gran # (Auto) Neut # (Auto) Lymph # (Auto) [place] # (Auto) Eos # (Auto) Baso # (Auto) D-Dimer (Manual) 674.05 Puncture Site O2 Saturation ABG pH ABG pCO2 ABG pO2 ABG HCO3 ABG Total CO2 ABG Base Excess FiO2 % Sodium 139.5 Potassium 4.19 Chloride 103.4 Carbon Dioxide 29.0 Anion Gap 11.29 BUN 18.7 H Creatinine 0.80 Estimated GFR (MDRD) 70.00 BUN/Creatinine Ratio 23.37 Glucose 93.5 Calcium 10.41 H Iron Total Bilirubin 0.40 AST 20.4 ALT 13.6 Alkaline Phosphatase 114.4 Troponin I < 0.012 Total Protein 6.78 Albumin 4.42 Globulin 2.36 Albumin/Globulin Ratio 1.87 Procalcitonin < 0.05 Influ A Molecular Assay Influ B Molecular Assay 07/31/18 19:30 WBC RBC Hgb Hct MCV MCH MCHC RDW Coeff of Samia Plt Count Immature Gran % (Auto) Neut % (Auto) Lymph % (Auto) [place] % (Auto) Eos % (Auto) Baso % (Auto) Immature Gran # (Auto) Neut # (Auto) Lymph # (Auto) [place] # (Auto) Eos # (Auto) Baso # (Auto) D-Dimer (Manual) Puncture Site O2 Saturation ABG pH ABG pCO2 ABG pO2 ABG HCO3 ABG Total CO2 ABG Base Excess FiO2 % Sodium Potassium Chloride Carbon Dioxide Anion Gap BUN Creatinine Estimated GFR (MDRD) BUN/Creatinine Ratio Glucose Calcium Iron 54.3 Total Bilirubin AST ALT Alkaline Phosphatase Troponin I Total Protein Albumin Globulin Albumin/Globulin Ratio Procalcitonin Influ A Molecular Assay Influ B Molecular Assay Orders Category Date Time Status ABG DRAW REQUEST Routine CARDIO 07/31/18 18:57 Completed ABG DRAW REQUEST Stat CARDIO 07/31/18 18:57 Completed EKG-(ED ONLY) Stat CARDIO 07/31/18 18:56 Completed NEBULIZER TREATMENT Stat CARDIO 07/31/18 19:02 Completed NEBULIZER TREATMENT Stat CARDIO 07/31/18 19:03 Completed NEBULIZER TREATMENT Stat CARDIO 07/31/18 20:13 Completed ABG Stat LAB 07/31/18 18:57 Completed CBC W/ AUTO DIFF Stat LAB 07/31/18 19:30 Completed CMP [COMPREHENSIVE METABOLIC PANEL] Stat LAB 07/31/18 19:30 Completed D-DIMER Stat LAB 07/31/18 19:30 Completed FLU A & B MOLECULAR [FLU A/B MOLECULAR] Stat LAB 07/31/18 19:11 Completed IRON Stat LAB 07/31/18 19:30 Completed PROCALCITONIN Stat LAB 07/31/18 19:30 Completed TROPONIN I Stat LAB 07/31/18 19:30 Completed Budesonide [Pulmicort 0.5 mg/2 ml] MEDS 07/31/18 19:03 Discontinued 1 vial NEB ONCE STA Ipratropium/Albuterol Neb [Duoneb] MEDS 07/31/18 19:02 Discontinued 1 vial NEB ONCE STA Ipratropium/Albuterol Neb [Duoneb] MEDS 07/31/18 20:13 Discontinued 1 vial NEB ONCE STA Methylprednisolone Sod Succ/Pf [Solu-Medrol 125 mg] MEDS 07/31/18 20:14 Discontinued 125 mg IM ONCE STA CXR [CHEST, 2 VIEWS PA & LAT] Stat RADS 07/31/18 20:15 Completed Medications Discontinued Medications Generic Name Dose Route Start Last Admin Trade Name Freq PRN Reason Stop Dose Admin Albuterol/Ipratropium 1 vial 07/31/18 19:02 07/31/18 19:21 Duoneb NEB 07/31/18 19:03 1 vial ONCE STA Administration Albuterol/Ipratropium 1 vial 07/31/18 20:13 07/31/18 20:36 Duoneb NEB 07/31/18 20:14 1 vial ONCE STA Administration Budesonide 1 vial 07/31/18 19:03 07/31/18 19:21 Pulmicort 0.5 Mg/2 Ml NEB 07/31/18 19:04 1 vial ONCE STA Administration Methylprednisolone Sodium Succinate 125 mg 07/31/18 20:14 07/31/18 20:38 Solu-Medrol 125 Mg IM 07/31/18 20:15 125 mg ONCE STA Administration Vital Signs: Temp Pulse Resp BP Pulse Ox 07/31/18 19:40 98 H 18 168/80 H 100 07/31/18 17:36 87 15 155/86 H 99 07/31/18 17:11 99.2 F 89 22 143/79 H 92 L Departure <MURPHY MILLS - Last Filed: 07/31/18 19:42> - Departure Time of Disposition: 21:11 Pt referred to PMD for follow-up: Yes IPMP verified?: No Transfer Form Completed: No Disposition Discussed With: Patient, Family <MURPHY RED - Last Filed: 07/31/18 21:15> - Departure Disposition: HOME SELF-CARE Discharge Problem: COPD (chronic obstructive pulmonary disease) Qualifiers: COPD type: unspecified COPD Qualified Code(s): J44.9 - Chronic obstructive pulmonary disease, unspecified Instructions: COPD (Chronic Obstructive Pulmonary Disease) (ED) Condition: Good Prescriptions: Prednisone 10 mg PO DAILY 5 Days #5 tab.ds.pk NS Allergies/Adverse Reactions: Allergies codeine [Codeine] Adverse Reaction (Verified 07/31/18 17:09) Home Medications: Ambulatory Orders Budesonide/Formoterol Fumarate [Symbicort 160-4.5 Mcg Inhaler] 1 puff IH BID 04/13 Prednisone 10 mg PO DAILY 5 Days #5 tab.ds.pk NS 07/31/18
[2018-07-31] MEDS ORDERED: PULMICORT 0.5 MG/2 ML NEB STA (19:03)
[2018-07-31 19:41] VITALS: BP 168/80
[2018-07-31] MEDS ORDERED: SOLU-MEDROL 125 MG IM STA (20:14)
--- NOTE | 2018-07-31 21:06 | DI ---
EXAM: Two-view chest HISTORY: Shortness of breath COMPARISON: Two-view chest 07/22/2018 FINDINGS: The cardiomediastinal silhouette is stable. There are moderate emphysematous changes. Ce ntral pulmonary arteries are prominent.. Stable scarring is noted at the left lung base. IMPRESSION: Stable cardiomediastinal silhouette. Chronic obstructive pulmonary disease with stable left basilar scarring
== END 2018-07-31 21:28 | disposition home or self-care (01) ==
LOC: ED 17:01
DX: J44.9 Chronic obstructive pulmonary disease, unspecified (principal); R06.02 Shortness of breath; I10 Essential (primary) hypertension; I25.10 Atherosclerotic heart disease of native coronary artery without angina pectoris; Z99.81 Dependence on supplemental oxygen
CPT/HCPCS: 36415; 80053; 82803; 83540; 84145; 84484; 85025; 85379; 87502; 93005; 93010; 94640; 96372; 99283

== ENCOUNTER 2019-05-03 13:46 | Inpatient (IN) ==
[2019-05-03 13:53] VITALS: BMI 19.8
[2019-05-03] MEDS ORDERED: DUONEB NEB STA (14:32)
--- NOTE | 2019-05-03 14:37 | ED.PDOC ---
General ED Provider: Dr. MURPHY MILLS Chief Complaint: Shortness of Air Stated Complaint: SOB and decreased O2 Sat at physicians office Time Seen by Physician: 14:35 Mode of Arrival: Wheelchair Information Source: Patient Exam Limitations: No limitations Primary Care Provider: SRIDHAR BEAVER MD Seen Within Last 72 Hours for Same Complaint By: Clinic and PCP Nursing and Triage Documentation Reviewed and Agree: Yes Does patient meet sepsis criteria?: No System Inflammatory Response Syndrome: Not Applicable Sepsis Protocol: For patient's 13 years and over: Temp is 96.8 and below OR 101 and greater Pulse >90 BPM Resp >20/minute Acutely Altered Mental Status Are patient's symptoms suggestive of a new infection, such as: -Pneumonia -Skin, Soft Tissue -Endocarditis -UTI -Bone, Joint Infection -Implantable Device -Acute Abdominal Infection -Wound Infection -Meningitis -Blood Stream Catheter Infection -Unknown Respiratory Complaint Exam Shortness of Air Complaint/Exam Onset/Duration: 3 days Symptoms Are: Still present and Worse Timing: Intermittent Initial Severity: Moderate Current Severity: Moderate Character: Reports Dyspnea at rest and Dyspnea on exertion Aggravating: Reports Movement, Recumbent position and Smoke exposure Alleviating: Reports Bronchodilators, Oxygen and Upright position Associated Signs and Symptoms: Reports Cough and Wheezing; Denies Chest pain with cough, Chest pain, Fever, Chills, Diaphoresis, Nasal congestion, Dizziness, Calf pain, Calf swelling, Edema, Rapid breathing, Labored breathing and Decreased intake Related History: Reports Similar episode History of Healthcare-Acquired Pneumonia: No Pulmonary Embolism Risk Factors: Reports None Cardiac Risk Factors: Reports Smoking, Hypertension and CHF Pseudomonas Risk Factors: Reports None Tuberculosis Risk Factors: Reports None Home Oxygen Use: Yes Recent Stress Test: No Recent Echo/LV Function: No Respiratory Distress: Mild Stridor Present: No Tracheal Deviation: No Subcutaneous Emphysema: No Accessory Muscle Use: No Retractions: Not Present Diminished Breath Sounds: Yes Prolonged Expiratory Phase: No Unable to Speak Full Sentences: No Fatigue: Yes Leg Swelling: No Jerilyn's Sign Present: No Grunting Respirations: No Kussmaul Respirations: No Differential Diagnoses: Airway Obstruction, CHF, COPD Exacerbation, Pneumonia and Bronchospasm Quality Indicator For Non-Traumatic Chest Pain/Syncope: EKG Performed Related Surgical History: Reports None Review of Systems Review Of Systems Constitutional: Reports No symptoms Eyes: Reports No symptoms Ears, Nose, Mouth, Throat: Reports No symptoms Respiratory: Reports Cough, Short of air and Wheezing Cardiac: Reports No symptoms GI: Reports No symptoms : Reports No symptoms Musculoskeletal: Reports No symptoms Skin: Reports No symptoms Neurological: Reports No symptoms Endocrine: Reports No symptoms Hematologic/Lymphatic: Reports No symptoms All Other Systems: Reviewed and Negative [facility] Medical History (Updated 05/03/19 @ 20:57 by KEVIN CRAIN RN) Acute and chronic respiratory failure (Acute) Acute exacerbation of chronic obstructive pulmonary disease (Acute) Anxiety Cataract Chronic daily headache Chronic obstructive pulmonary disease Decreased appetite (Acute) Depression Emphysema Hypercalcemia (Acute) Hypoxia (Acute) Mumps Nausea and vomiting (Acute) Shortness of breath (Acute) Varicella Social History (Updated 05/03/19 @ 14:07 by DELORIS MACIAS RN) Smoking and tobacco status: Current some day smoker Passive smoking exposure: Yes Quit status: has quit before Second hand smoke exposure: Yes Smoking risk assessment performed: No Alcohol intake: never Counseling given: No Substance use type: does not use Counseling given: No Special gerry needs: No Agree to transfusion: Yes Adopted: No Caregiver/support person: No Foster care: No Household members: spouse and children Housing: house Marital status: M Lives independently: No Financial difficulty paying for basics: somewhat hard service: No senior living: No Current occupational status: retired Pets and animals: Yes History of recent travel: No Sexually active: No Do you think of yourself as: straight/heterosexual Current gender identity: female Seatbelt use: always Helmet use: No Drives intoxicated or rides with intoxicated motorcycle delivery driver: No Water heater temperature set < 120 degrees: Yes Working smoke detector in home: Yes Fire extinguisher in home: Yes Carbon monoxide detector in home: Yes Firearms in home: No Female Reproductive History Menstrual Hx Hysterectomy: Yes Hx Tubal Ligation: No Physical Exam Physical Exam Appearance: Reports Ill-appearing and Obese Interpretation Radiology Interpretation Radiology Interpretation By: Radiologist Exam Interpreted: Portable CXR (No acute cardiopulmonary process.) EKG Interpretation Time of EKG #1: 14:57 Rate: Normal Rhythm: Sinus ST Segment: Normal Interpretation: RBBB Physician Notification Case Discussed Physician Notified: Dr Leonardo Time of Notification: 18:00 Critical Care Note Critical Care Note Total Time (mins): 30 Course Course Hematology/Chemistry: 05/07/19 04:28 02/08/20 04:28 Orders, Labs, Meds: Lab Review 05/03/19 05/03/19 05/03/19 14:45 14:45 14:45 WBC 5.70 RBC 4.17 L Hgb 12.5 Hct 38.6 MCV 92.6 MCH 30.0 MCHC 32.4 RDW Coeff of Samia 12.4 Plt Count 136 L Immature Gran % (Auto) 0.2 Neut % (Auto) 72.9 Lymph % (Auto) 19.3 [place] % (Auto) 6.0 Eos % (Auto) 1.1 Baso % (Auto) 0.5 Immature Gran # (Auto) 0.0 Neut # (Auto) 4.2 Lymph # (Auto) 1.1 [place] # (Auto) 0.3 L Eos # (Auto) 0.1 Baso # (Auto) 0.0 Puncture Site R brach O2 Saturation 99.0 ABG pH 7.461 H ABG pCO2 51.2 H ABG pO2 126.0 H ABG HCO3 36.5 H ABG Total CO2 38 H ABG Base Excess 13 H Emanuel Test + O2 Delivery Device Nc Oxygen Liter Flow 2.00 Sodium 139.8 Potassium 3.20 L Chloride 97.8 L Carbon Dioxide 37.1 H Anion Gap 8.10 BUN 14.0 Creatinine 0.71 Estimated GFR (MDRD) 80.00 BUN/Creatinine Ratio 19.71 Glucose 103.6 Calcium 10.54 H Total Bilirubin 0.52 AST 30.0 ALT 12.3 Alkaline Phosphatase 90.8 Troponin I 0.030 NT-Pro-B Natriuret Pep 1890.000 H Total Protein 6.90 Albumin 4.01 Globulin 2.89 Albumin/Globulin Ratio 1.38 05/03/19 16:46 WBC RBC Hgb Hct MCV MCH MCHC RDW Coeff of Samia Plt Count Immature Gran % (Auto) Neut % (Auto) Lymph % (Auto) [place] % (Auto) Eos % (Auto) Baso % (Auto) Immature Gran # (Auto) Neut # (Auto) Lymph # (Auto) [place] # (Auto) Eos # (Auto) Baso # (Auto) Puncture Site Rr O2 Saturation 95.0 ABG pH 7.418 ABG pCO2 56.2 H ABG pO2 80.0 L ABG HCO3 36.3 H ABG Total CO2 38 H ABG Base Excess 12 H Emanuel Test + O2 Delivery Device Nc Oxygen Liter Flow 2.00 Sodium Potassium Chloride Carbon Dioxide Anion Gap BUN Creatinine Estimated GFR (MDRD) BUN/Creatinine Ratio Glucose Calcium Total Bilirubin AST ALT Alkaline Phosphatase Troponin I NT-Pro-B Natriuret Pep Total Protein Albumin Globulin Albumin/Globulin Ratio Orders Category Date Time Status ADMIT PATIENT INPATIENT .TO MEDSUR (MONITORED BED) ADMISSION 05/03/19 18: 26 Active ABG DRAW REQUEST Stat CARDIO 05/03/19 14:30 Completed ABG DRAW REQUEST Stat CARDIO 05/03/19 16:46 Completed EKG-(ED ONLY) Stat CARDIO 05/03/19 14:30 Completed NEBULIZER TREATMENT Stat CARDIO 05/03/19 14:33 Completed TELEMETRY MONITORING TELE CARE 05/03/19 18:27 Active ABG Stat LAB 05/03/19 14:45 Completed ABG Stat LAB 05/03/19 16:46 Completed CBC W/ AUTO DIFF Stat LAB 05/03/19 14:45 Completed CMP [COMPREHENSIVE METABOLIC PANEL] Stat LAB 05/03/19 14:45 Completed NT-PROBNP Stat LAB 05/03/19 14:45 Completed TROPONIN I Stat LAB 05/03/19 14:45 Completed Ipratropium/Albuterol Neb [Duoneb] MEDS 05/03/19 14:32 Discontinued 3 ml NEB ONCE STA Potassium Chloride [K-Dur] MEDS 05/03/19 15:45 Discontinued 20 meq PO ONCE STA CHEST, 1V AP ONLY Stat RADS 05/03/19 14:30 Completed Medications Discontinued Medications Generic Name Dose Route Start Last Admin Trade Name Freq PRN Reason Stop Dose Admin Albuterol/Ipratropium 3 ml 05/03/19 14:32 05/03/19 14:48 Duoneb NEB 05/03/19 14:33 3 ml ONCE STA Administration Albuterol/Ipratropium 3 ml 05/03/19 20:00 05/06/19 05:09 Duoneb NEB Not Given RTQID DANIEL Alprazolam 0.5 mg 05/04/19 14:07 05/07/19 08:22 Xanax PO 0.5 mg QID PRN Administration Anxiety Budesonide/Formoterol Fumarate 2 puff 05/03/19 21:00 05/07/19 08:18 Symbicort 160-4.5 Mcg Inhaler IH 2 puff BID DANIEL Administration Enoxaparin Sodium 40 mg 05/03/19 19:00 05/07/19 08:25 Lovenox SUBCUT 40 mg DAILY DANIEL Administration Fluoxetine HCl 40 mg 05/03/19 19:00 05/07/19 08:18 Prozac PO 40 mg DAILY DANIEL Administration Hydrochlorothiazide 12.5 mg 05/04/19 11:30 05/07/19 08:19 Hydrochlorothiazide PO 12.5 mg DAILY DANIEL Administration Sodium Chloride 1,000 mls @ 75 mls/hr 05/03/19 19:00 05/05/19 11:36 Sodium Chloride IV Not Given .[id number] DANIEL Aztreonam 1 gm/ Sodium 50 mls @ 75 mls/hr 05/03/19 19:00 05/06/19 13:01 Chloride IV 05/06/19 18:59 75 mls/hr Q8HR DANIEL Administration Doxycycline Hyclate 100 mg/ 100 mls @ 50 mls/hr 05/03/19 21:00 05/07/19 08:18 Sodium Chloride IV 05/09/19 20:59 50 mls/hr Q12HR DANIEL Administration Aztreonam 1 gm/ Sodium 50 mls @ 75 mls/hr 05/06/19 22:00 05/07/19 13:30 Chloride IV 05/09/19 21:59 75 mls/hr Q8HR DANIEL Administration Levalbuterol HCl 0.63 mg 05/03/19 18:45 Xopenex 0.63 Mg NEB RTQ6H PRN Wheezing Losartan Potassium 50 mg 05/04/19 09:00 05/07/19 08:18 Cozaar PO 50 mg BID DANIEL Administration Methylprednisolone Sodium Succinate 40 mg 05/03/19 21:00 05/07/19 13:30 Solu-Medrol 40 Mg IVP 40 mg Q8HR DANIEL Administration Metoprolol Tartrate 50 mg 05/03/19 21:00 05/03/19 21:47 Lopressor PO 50 mg BID DANIEL Administration Metoprolol Tartrate 50 mg 05/04/19 05:30 05/04/19 06:14 Lopressor PO 05/04/19 05:31 50 mg ONCE STA Administration Metoprolol Tartrate 50 mg 05/04/19 21:00 05/06/19 20:41 Lopressor PO 50 mg BID DANIEL Administration Metoprolol Tartrate 50 mg 05/07/19 09:00 05/07/19 08:18 Lopressor PO 50 mg BID DANIEL Administration Ondansetron HCl 4 mg 05/03/19 18:50 05/07/19 08:22 Zofran Tab PO 4 mg Q8H PRN Administration Nausea / Vomiting Potassium Chloride 20 meq 05/03/19 15:45 05/03/19 15:50 K-Dur PO 05/03/19 15:46 20 meq ONCE STA Administration Potassium Chloride 20 meq 05/04/19 12:24 05/04/19 12:42 K-Dur PO 05/04/19 12:25 20 meq ONCE STA Administration Sodium Chloride 1 syr 05/04/19 21:00 05/07/19 13:30 Saline Flush IVF 1 syr Q8HR DANIEL Administration Sodium Chloride 1 syr 05/06/19 14:35 Saline Flush IVF PRN PRN Maintain IV Patency Vital Signs: Temp Pulse Resp BP Pulse Ox 05/03/19 13:46 97.0 F L 100 H 24 162/90 H 87 L Discharge Plan Discharge Patient Disposition: PLACED OBSERVATION Discharge Problem: Acute exacerbation of chronic obstructive pulmonary disease, Hypoxia ED Provider: MURPHY MILLS Condition: Fair Discharge Date/Time: 05/03/19 20:24
[2019-05-03 14:52] LABS: HEMATOCRIT 38.6 % (37.0-47.0)
--- NOTE | 2019-05-03 15:34 | DI ---
EXAM: Chest one view HISTORY: Dyspnea and decreasing O2 saturation COMPARISON: 12/03/2018 02/18/2019 TECHNIQUE: Single view of the chest was performed FINDINGS: Normal heart size. Normal mediastinal contour. Similar left basilar scarring or atelectas is. The lungs are clear. No pleural effusion or pneumothorax. No acute abnormalities of the bones. IMPRESSION: No acute cardiopulmonary process.
[2019-05-03] MEDS ORDERED: K-DUR PO STA (15:45)
[2019-05-03] MEDS ORDERED: XOPENEX 0.63 MG NEB PRN (18:45)
--- NOTE | 2019-05-03 19:19 | CT ---
EXAM: CT of the chest without contrast History: Short of breath Comparison: Chest radiograph 05/03/2019, chest CT 02/18/2019 Technique: Multiplanar CT images through the thorax were obtained without the administration of IV c ontrast Findings: Heart size is upper limits of normal. Trace pericardial fluid. No pathologically enlarged thoracic lymph nodes. Diffuse bronchial wall thickening. No consolidated pneumonia. Emphysema. T here are scattered tree-in-bud opacities with micronodules and there is some distal bronchiectasis wi th mucus plugging. No densely consolidated pneumonia. No change in the 6 mm left upper lobe ground- glass nodule. Motion artifact compromises image quality. Within the visualized upper abdomen, no acute findings. Small stone within the left kidney. No acut e osseous abnormalities. Impression: 1. Diffuse bronchial wall thickening is more noticeable compared to the prior study with tree in bud opacities and micronodules compatible with infectious or inflammatory process. There is no densely consolidated pneumonia. 2. Emphysema. 3. Stable 6 mm left upper lobe lung nodule.
[2019-05-03] MEDS: DUONEB NEB SCH (20:20)
[2019-05-03] MEDS ORDERED: LOPRESSOR PO SCH (21:00)
[2019-05-03] MEDS ORDERED: AZACTAM ONE (21:36)
[2019-05-03] MEDS: SYMBICORT 160-4.5 MCG INHALER IH SCH (21:47)
[2019-05-03] MEDS: PROZAC PO SCH (21:47)
[2019-05-03] MEDS: LOVENOX SUBCUT SCH (21:47)
[2019-05-03] MEDS: AZACTAM 1 GM in SODIUM CHLORIDE 50 ML IV SCH ×2 (21:48→21:49)
[2019-05-03] MEDS: SODIUM CHLORIDE 1,000 ML IV SCH (21:49)
[2019-05-03] MEDS: SOLU-MEDROL 40 MG IVP SCH (21:50)
[2019-05-03] MEDS: DOXY-100 100 MG in SODIUM CHLORIDE 100 ML IV SCH (23:19)
[2019-05-04] MEDS: DUONEB NEB SCH ×4 (05:13→20:00)
[2019-05-04] MEDS ORDERED: AZACTAM ONE (05:30)
[2019-05-04] MEDS ORDERED: LOPRESSOR PO STA (05:30)
[2019-05-04] MEDS: AZACTAM 1 GM in SODIUM CHLORIDE 50 ML IV SCH ×3 (05:41→20:12)
[2019-05-04] MEDS: SOLU-MEDROL 40 MG IVP SCH ×3 (06:14→20:34)
[2019-05-04] MEDS: SYMBICORT 160-4.5 MCG INHALER IH SCH ×2 (08:32→20:34)
[2019-05-04] MEDS: COZAAR PO SCH ×2 (08:33→20:34)
[2019-05-04] MEDS: PROZAC PO SCH (08:34)
[2019-05-04] MEDS: LOVENOX SUBCUT SCH (08:36)
[2019-05-04] MEDS: DOXY-100 100 MG in SODIUM CHLORIDE 100 ML IV SCH ×2 (09:59→21:28)
[2019-05-04] MEDS: ZOFRAN TAB PO PRN (10:12)
[2019-05-04] MEDS: HYDROCHLOROTHIAZIDE PO SCH (11:52)
[2019-05-04] MEDS ORDERED: K-DUR PO STA (12:24)
[2019-05-04] MEDS: XANAX PO PRN ×2 (14:22→20:34)
--- NOTE | 2019-05-04 14:32 | PN ---
DATE OF SERVICE: 05/04/19 SUBJECTIVE: Today she is feeling much better. She was admitted on 05/03/19 with COPD exacerbation, hypoxia and acute on chronic respiratory failure. Today, she is feeling much better. She was given Xopenex as well as Doxycycline, Aztreonam antibiotic in the ER as well as Lovenox prophylaxis and Duoneb in the Emergency Department. She was also given a dose of Solu-Medrol intravenous in the Emergency Department. ABGs were drawn in the Emergency Department initially and then a repeat was asked to be drawn by Dr. Leonardo. The repeat ABGs were an 02 saturation of 95% and pH of 7.418, pc02 of 56.2, p02 of 80, HC03 of 36.3, total c02 of 38 and a base excess of 12, this is on nasal cannula at 2L/NC. Hemoglobin/hematocrit were stable. Potassium slightly low at 3.20. BUN 14, creatinine 0.71. Her BNP was 1890. Her chest x-ray showed no acute pulmonary process however a CT of the chest was completed in the Emergency Department. It did show diffuse bronchial wall thickening. It is more noticeable compared to the prior study with tree in bud opacities and micronodules compatible with infectious or inflammatory process. There is no densely consolidated pneumonia seen. It does show emphysema and stable 6 mm left upper lobe nodule. I will review the CT of the chest with Dr. Leonardo. She continues on the Doxycyline. OBJECTIVE: On exam today she has no wheezing. Her lungs are very diminished throughout. Heart is regular rate and rhythm. She has no lower extremity edema on exam. She is up eating breakfast. She is in no acute distress. She is wearing 02 at 2L/NC. Vital signs this morning: Temperature 98, pulse 83, blood pressure elevated at 185/98, respiratory rate 18, 02 sat 99% on 2L/NC. On telemetry, she is running sinus rhythm with a bundle branch block at 83 bpm. is at the bedside. HAZEL
[2019-05-04] MEDS: LOPRESSOR PO SCH (20:34)
[2019-05-05] MEDS: AZACTAM 1 GM in SODIUM CHLORIDE 50 ML IV SCH ×3 (05:11→20:47)
[2019-05-05] MEDS: SOLU-MEDROL 40 MG IVP SCH ×3 (05:11→20:47)
[2019-05-05] MEDS: DUONEB NEB SCH ×4 (05:29→19:16)
[2019-05-05] MEDS: DOXY-100 100 MG in SODIUM CHLORIDE 100 ML IV SCH ×2 (08:34→22:01)
[2019-05-05] MEDS: SYMBICORT 160-4.5 MCG INHALER IH SCH ×2 (08:38→20:47)
[2019-05-05] MEDS: HYDROCHLOROTHIAZIDE PO SCH (08:39)
[2019-05-05] MEDS: LOPRESSOR PO SCH ×2 (08:40→20:48)
[2019-05-05] MEDS: PROZAC PO SCH (08:40)
[2019-05-05] MEDS: COZAAR PO SCH ×2 (08:40→20:47)
[2019-05-05] MEDS: LOVENOX SUBCUT SCH (08:41)
[2019-05-05] MEDS: XANAX PO PRN ×2 (08:48→20:48)
[2019-05-05] MEDS: ZOFRAN TAB PO PRN (08:48)
[2019-05-05] MEDS: SODIUM CHLORIDE 1,000 ML IV SCH (11:36)
--- NOTE | 2019-05-05 13:27 | HP ---
DATE OF SERVICE: 05/03/2019 CHIEF COMPLAINT: Body aches, difficulty breathing, shortness of breath HISTORY OF PRESENT ILLNESS: Mrs. Saravia is a pleasant 79 year old patient of Dr. Leonardo who presented to the office with complaints of generalized body aches. Upon assessment she was having a very difficult time breathing. She does wear chronic O2 at 2 liters per nasal cannula. She does have chronic respiratory issues as well as COPD. Her was with her at the time of the office visit. She was notably shortness of breath. She was hypoxic and breathing was unstable. Her oxygen saturation was 84% this was on 2 liters per nasal canula. Because of her difficulty breathing she was recommended to be seen and evaluated in the emergency department. She was seen and evaluated in the emergency department by Dr. Pedro. She did have a chest x-ray and a CT of the chest completed. The CT of the chest did show diffused bronchial wall thickening more noticeable compared to the prior study with tree in bud opacities and micronodules compatible with infectious or inflammatory process. There was no densely consolidated pneumonia and also showed emphysema and stable 6mm left upper lobe lung nodule. Her ABG's were also completed in the emergency department. O2 saturation was 95% and he pH was 7.418. Her pCO2 was 56.2. ABG pO2 80, HCO3 was 36.3. Total Co2 was 38 and her base excess was 12. This was on 2 liters per nasal canula. As far as her WBC on admission it was normal at 5.70, hgb and hct were stable and her plt count was slightly decreased at 136. Chemistry panel: Potassium was slightly low at 3.20, chloride low at 97.8. Because of her respiratory status she was admitted for acute on chronic respiratory failure, COPD exacerbation and there was concerns for a possible pneumonia. PAST MEDICAL HISTORY: Acute on chronic respiratory failure COPD Anxiety Chronic daily headaches Decreased appetite Depression Emphysema Hypercalcemia Hypoxia Nausea Vomiting Shortness of breath PAST SURGICAL HISTORY: Cataract extraction Dental surgery Appendectomy Cholecystectomy Hysterectomy FAMILY HISTORY: Mother with diabetes, also had hypertension Brother asthma Grandmother and grandfather listed with diabetes both and cardiac disease SOCIAL HISTORY: She does continue to smoke after multiple attempt to encourage her to quit smoking however she does continue to smoke even though this is having ill effects on her health. She denies any alcohol use. She denies any substance abuse. MEDICATIONS: Xanax 0.5mg QID PRN Fluoxetine 40mg Every day [place] 1 tablet daily PRN Duo NEB three inhalation QID PRN Metoprolol tartrate one tablet twice a day Naproxen 500mg twice a day Zofran 4mg every 8 hours PRN Symbicort two puff inhalation twice a day ALLERGIES: Cefepime Codeine REVIEW OF SYSTEMS: CONSTITUTIONAL: No reports of fever, chills, night sweats or weight changes. Body aches in general. HEENT: No nasal drainage or sore throat. Chronic daily headaches. CARDIOVASCULAR: No reports of chest pain or irregular rhythm. No orthopnea or peripheral edema. RESPIRATORY: Chronic COPD. Does complaining of increased shortness of breath. Increase in cough and congestion. No lung disease. GASTROINTESTINAL: No reports of abdominal pain, nausea, vomiting or diarrhea or blood in the stool. Denies constipation. GENITOURINARY: No reports of dysuria, hematuria, nocturia or urinary incontinence. MUSCULOSKELETAL: No reports of unusual muscle pain, joint redness or swelling. NEUROLOGIC: No reports of dizziness, any neurological deficits. She does complain of generalized weakness. Extreme fatigue. ENDOCRINE: No reports of history of diabetes mellitus. No reports of thyroid disease INTEGUMENT: No reports of unusual rashes, lesions or skin changes. PSYCHIATRIC: No complaints of mood changes. She does have chronic anxiety and chronic issues with depression. No suicidal thoughts. PHYSICAL EXAMINATION: GENERAL: She is alert and oriented. She is answering all questions appropriately. VITAL SIGNS: Height 5'6, weight 126 pounds, BMI 20.4, blood pressure 157/91, respiratory rate 22, pulse 102, temperature 97.7, pulse ox 94% on 2 liters per nasal cannula. HEENT: Head normocephalic, atraumatic. Pupils equal/reactive to light. Conjunctivae clear. Mucus membranes are moist. NECK: Supple. No lymphadenopathy or thyromegaly or carotid bruit is auscultated. CARDIOVASCULAR: S1, S2 regular rate and rhythm. No peripheral edema. LUNGS: Wheezing and diminished. She does have wheezing throughout. O2 in place at 2 liters per canula with low oxygen saturation. She does have labored breathing on examination. ABDOMEN: Soft. Bowel sounds are positive. No tenderness. NEUROLOGIC: Cranial nerves 2-12 grossly intact without any overt neurological deficit. SKIN: Warm and dry. LABS/DIAGNOSTIC TESTING: Have already been reviewed. There concerns for pneumonia on the chest x-ray done in ER. ASSESSMENT: 1. Acute on chronic respiratory failure with chest x-rays with concerns for probable pneumonia 2. COPD exacerbation 3. Hypoxia 4. Chronic O2 use 5. Chronic daily headaches 6. Depression/anxiety 7. Hypertension PLAN: 1. Follow the blood cultures ordered from the emergency department 2. IV fluids have been ordered with Potassium replacement 3. Antibiotics have also been ordered as well as Nebulizer treatments 4. DVT prophylaxis with Lovenox prophylaxis has been ordered 5. Home medications have been resumed 6. Further orders and recommendations per Dr. Leonardo. TIME SPENT: GREATER THAN 65 MINUTES MTDD
[2019-05-05 20:33] LABS: HEMATOCRIT 37.2 % (37.0-47.0)
[2019-05-06] MEDS: SOLU-MEDROL 40 MG IVP SCH ×3 (04:53→20:53)
[2019-05-06] MEDS: AZACTAM 1 GM in SODIUM CHLORIDE 50 ML IV SCH ×3 (04:53→22:24)
[2019-05-06] MEDS: DUONEB NEB SCH (05:09)
[2019-05-06 05:18] LABS: HEMATOCRIT 39.1 % (37.0-47.0)
[2019-05-06] MEDS: ZOFRAN TAB PO PRN (08:10)
[2019-05-06] MEDS: HYDROCHLOROTHIAZIDE PO SCH (08:19)
[2019-05-06] MEDS: COZAAR PO SCH ×2 (08:19→20:40)
[2019-05-06] MEDS: PROZAC PO SCH (08:19)
[2019-05-06] MEDS: LOPRESSOR PO SCH ×2 (08:21→20:41)
[2019-05-06] MEDS: LOVENOX SUBCUT SCH (08:26)
[2019-05-06] MEDS: SYMBICORT 160-4.5 MCG INHALER IH SCH ×2 (08:26→20:40)
[2019-05-06] MEDS: DOXY-100 100 MG in SODIUM CHLORIDE 100 ML IV SCH ×2 (08:29→22:24)
--- NOTE | 2019-05-06 13:20 | PN ---
DATE OF SERVICE: 05/06/19 SUBJECTIVE: Today her vital signs have improved. Blood pressure 159/77, pulse 72, respirations 18, temperature 98.4 and 02 sat 97% on 2L. She does report that she is breathing better. OBJECTIVE: LUNGS: Very diminished. She does not have any wheezing on exam. HEART: Regular rate and rhythm. She does report that she is eating better. She is breathing better as well. She is being treated for acute on chronic respiratory failure as well as COPD exacerbation and possible pneumonia. As far as diagnostics, today her white count is normal. Hemoglobin/hematocrit are normal. Her platelet count is normal. Chemistry panel - sodium is normal. Potassium is normal. BUN 25.2, creatinine 0.83, glucose 131.8, calcium 10.86, NT-Pro-BNP is stable at 1920. There is no diagnostics to report. Further orders and recommendations per Dr. Leonardo. [facility]
[2019-05-06] MEDS: XANAX PO PRN (20:41)
[2019-05-07] MEDS ORDERED: AZACTAM ONE (04:40)
[2019-05-07] MEDS: AZACTAM 1 GM in SODIUM CHLORIDE 50 ML IV SCH ×2 (04:47→13:30)
[2019-05-07] MEDS: SOLU-MEDROL 40 MG IVP SCH ×2 (04:48→13:30)
[2019-05-07] MEDS: SYMBICORT 160-4.5 MCG INHALER IH SCH (08:18)
[2019-05-07] MEDS: COZAAR PO SCH (08:18)
[2019-05-07] MEDS: PROZAC PO SCH (08:18)
[2019-05-07] MEDS: DOXY-100 100 MG in SODIUM CHLORIDE 100 ML IV SCH (08:18)
[2019-05-07] MEDS: HYDROCHLOROTHIAZIDE PO SCH (08:19)
[2019-05-07] MEDS: XANAX PO PRN (08:22)
[2019-05-07] MEDS: ZOFRAN TAB PO PRN (08:22)
[2019-05-07] MEDS: LOVENOX SUBCUT SCH (08:25)
[2019-05-07] MEDS ORDERED: LOPRESSOR PO SCH (09:00)
[2019-05-07 14:54] VITALS: BP 136/70; TEMP 98.3
--- NOTE | 2019-05-11 09:50 | PN ---
DATE OF SERVICE: 05/05/2019 SUBJECTIVE: The patient is alert today and feeling much better. Her color is good and still on 2 liters of nasal oxygen. VITAL: Temperature 98.1, pulse 76, blood pressure 149/77, respiratory rate 18 and oxygen saturation 93 at 2 liters of nasal oxygen. No jugular venous distention at about 15 degree head elevation. LUNGS: Markedly diminished breath sounds. No inspiratory or expiratory wheeze. HEART: Audible with good tones ABDOMEN: Nontender CONDITION: Improved. MTDD
--- NOTE | 2019-05-11 11:41 | DS ---
DATE OF SERVICE: 05/07/19 FINAL DIAGNOSES: 1. COPD severe with acute exacerbation. 2. Increasing hypoxemia superimposed on chronic respiratory failure. 3. Acute infectious, per CT scan chest. 4. Chronic tobacco use, persistent although much less. 5. History of depression. 6. Hypertension on medication. BRIEF HISTORY OF PRESENT ILLNESS/HOSPITAL COURSE: 79-year-old female admitted to the hospital complaining of severe weakness and shortness of breath. This patient was evaluated in the emergency room. The CT chest showed increasing thickening of the bronchial wall with tree in bud opacities and micronodules compatible with infectious process. The patient was then admitted for further treatment. The patient's arterial blood gases showed a p02 of 126, pc02 51.2, oxygen saturation 99, HC03 36.5, total c02 38, base excess +13 with 20% FI02. I did inform during the course of our conversation with the emergency room physician that doesn't seem to be compatible arterial blood gases for this patient. The blood gases were done at 2:45 p.m. and I asked him to repeat it and it was repeated at 4:26 p.m. after our discussion and now the oxygen saturation is 95, p02 80, pc02 56, pH 7.418, HC03 36.5, c02 about the same. 28% FI02. The patient was given Doxycycline 100 mg intravenously in the emergency room as well as Methylprednisolone 40 mg. She also received Aztreonam 1 mg intravenously in the ER, Lovenox 40 mg subQ was instituted. She also received nebulizer consisting of Duoneb while in the ER. This patient's pulse oximetry at the office was 84 with 2L of oxygen. The patient had inspiratory and expiratory wheezing with markedly diminished breath sounds. She was dyspneic. The patient is allergic to Cefepime and Codeine. She received Doxycyline 100 mg intravenously q.12hr. She was continued on Doxycycline as well as Azetreonam until discharge. The chemistry done on 05/07/19 at the time of discharged showed sodium 137, potassium 4.28, chloride 102.4, p02 29.6 from 33.1, BUN 36.6, creatinine 0.77, EGFR 73, Sugar 92.8, calcium 10.82 slightly above normal. NT-pro-BNP remained stable from 05/03/19 to 2/07/20 at 1,890 to 1,920. CBC showed slight increase in WBC 12,750 from normal. Neutrophils when down to 78.5 from 88.3, hemoglobin/hematocrit normal 13.5 and 42.0 respectively. Platelet count 179,000. PHYSICAL EXAMINATION: Vital signs at 2 p.m. just before discharge showed a temperature 98.3, pulse 71, blood pressure 136/70, respiratory rate 20, oxygen saturation 99 on 2L of nasal oxygen. Her color is good. She is not dyspneic or tachypneic. No venous distention at about 10 degree head elevation. Lungs have diminished breath sounds but no wheezing, no rales. Heart is audible and regular with good tones. Abdomen is nontender. Lower extremities no tenderness. PLAN: 1. The patient was advised never to resume smoking even 1/2 cigarette a day. She should never inhale any secondhand smoke. I know their son lives with them and smokes heavily. I repeated again that her windpipe is getting thicker based upon the CT scan report. It means that the condition is worsening. I hope that she will never resume smoking even at 1/2 cigarette a day. 2. The patient is to resume all of her medications, no further antibiotics is given for this patient since she had received 5 days. NOTE: This patient, while in the hospital, had an episode of blood pressure rise beyond 200 systolic. This patient is to see me this coming , was advised to call the office Thursday for the appointment. The patient had improved without the cigarettes and I am hoping that she will never resume smoking even with a very small amount. PROGNOSIS: Guarded to poor. TIME SPENT: GREATER THAN 30 MINUTES MTDD
--- NOTE | 2019-05-11 13:10 | PN ---
DATE OF SERVICE: 05/06/19 @ 6:50 P.M. SUBJECTIVE: The patient was seen earlier about 15 to 20 minutes ago and the patient claims that she is feeling better. The patient's was in the room. The patient's color is good. She is still using 2L of oxygen. Her lungs have diminished breath sounds on auscultation both sides but no inspiratory or expiratory wheeze she had on admission. She has some rales, coarse. Rales are much less from yesterday. The patient was auscultated when she was in the left lateral decubitus position. Heart is audible and regular with good tones. She denies any chest pain or abdominal pain. She will be continued on her antibiotics. Her vital signs today at 5:59 p.m. blood pressure 151/81, pulse 76, respiratory rate 18, temperature 98.1, oxygen saturation 98 on 2L of nasal oxygen. She consumed about 75% of her meals. WBC today is 8.96, RBC 4.26, hemoglobin 12.8, hematocrit 39.1, MCV 91.8, MCH 30, MCHC 32.7, RDW 12.7, platelet count 178,000. BUN 25.2, creatinine 0.83, EGFR 66. Calcium slightly elevated 10.86, blood sugar 121.8. NT-pro-BNP slightly elevated 1,920. Chest x-ray on 05/03/19 in ER showed no acute cardiopulmonary processes. CT does indicate diffuse bronchial wall thickening. CT did indicate more noticeable thicking of the bronchial wall compared to the prior studies. I had emphasized this to the patient as well as her . I told them that it is mandatory that she stop smoking completely, not once ever, not half of a cigarette but no cigarette at all. MTDMary Ann
== END 2019-05-07 15:39 | disposition home or self-care (01) | DRG 190 ==
LOC: ED 13:46 → MEDSURG A 18:26
PROVIDERS: ADMIT General Practice; ATTEND General Practice
DX: I10 Essential (primary) hypertension; J44.1 Chronic obstructive pulmonary disease with (acute) exacerbation; Z79.899 Other long term (current) drug therapy; R06.02 Shortness of breath; F17.210 Nicotine dependence, cigarettes, uncomplicated; F41.9 Anxiety disorder, unspecified; Z99.81 Dependence on supplemental oxygen; R51 Headache; R53.1 Weakness; M79.10 Myalgia, unspecified site; E87.1 Hypo-osmolality and hyponatremia; R63.0 Anorexia; F32.9 Major depressive disorder, single episode, unspecified; J96.21 Acute and chronic respiratory failure with hypoxia; G89.29 Other chronic pain; I50.9 Heart failure, unspecified